=== PATIENT | male | born 1950 | race Caucasian/White ===

== ENCOUNTER 2022-02-15 09:06 | Outpatient (CLI) | payer OTHER, SELFPAY ==
--- NOTE | ~2022-02-15 | XR_ITS ---
EXAMINATION: XR chest 2V DATE: 02/15/2022 09:22 INDICATION: Shortness of breath. Congestion. TECHNIQUE: Frontal and lateral views of the chest were obtained. COMPARISON: None. FINDINGS: There are small right and large left pleural effusions. There are airspace opacities involv ing the majority of left lung. No pneumothorax. The heart size is obscured. There is mild chronic ant erior wedging of multiple thoracic vertebral bodies. IMPRESSION: 1. Small right and large left pleural effusions. 2. Airspace opacities involving the majority of left lung, which may be atelectasis or pneumonia or m alignancy. Reviewed, dictated and finalized at location A. IMPRESSION: 1. Small right and large left pleural effusions. 2. Airspace opacities involving the majority of left lung, which may be atelect asis or pneumonia or malignancy.
[2022-02-15 19:09] LABS: Alanine Aminotransferase 21 U/L (6-50); Albumin Level 4.6 g/dL (3.5-5.1); Alkaline Phosphatase 63 U/L (38-126); Anion Gap 9 mmol/L (8-16); Aspartate Amino Transferase 55 U/L (17-59); Bilirubin,Total 0.6 mg/dL (0.2-1.3); Blood Urea Nitrogen 16 mg/dL (9-20); Calcium 9.1 mg/dL (8.4-10.2); Carbon Dioxide 30 mmol/L (22-30); Chloride 98 mmol/L (98-107); Estimated Glomerular Filt Rate > 60; Glucose 77 mg/dL (65-110); Potassium 3.9 mmol/L (3.4-5.0); Sodium 137 mmol/L (137-145)
[2022-02-15 20:23] LABS: Basophils Absolute Auto 0.1 K/mm3 (0.0-0.1); Basophils Percent Auto 0.9 % (0.2-1.2); Eosinophils Absolute Auto 0.1 K/mm3 (0-0.3); Eosinophils Percent Auto 1.9 % (0-4.4); Hematocrit 44.1 % (42.0-52.0); Immature Granulocyte Absolute 0.05 K/mm3 (0.00-0.031); Immature Granulocyte Percent A 0.7 % (0-0.5); Lymphocytes Absolute Auto 0.55 K/mm3 (0.9-3.2); Lymphocytes Percent Auto 8.1 % (18.3-44.2); Mean Corpuscular HGB Conc 31.7 g/dl (32-36); Mean Corpuscular Hemoglobin 30.4 pg (26-34); Mean Corpuscular Volume 95.9 fl (80-100); Mean Platelet Volume 9.3 fl (7.4-10.4); Monocytes Absolute Auto 0.7 K/mm3 (0.1-0.6); Monocytes Percent Auto 10.3 % (2.6-8.5); Neutrophils Absolute Auto 5.3 K/mm3 (1.3-6.7); Neutrophils Percent Auto 78.1 % (45.5-73.1); Platelet Count Result 249 k/mm3 (150-375); White Blood Count 6.8 K/mm3 (4.5-10.0)
== END 2022-02-15 09:07 | disposition home or self-care (01) ==
PROVIDERS: PCP Family Medicine; Visit Provider Family Medicine
DX: J18.9 Pneumonia, unspecified organism (principal); J90 Pleural effusion, not elsewhere classified; R91.8 Other nonspecific abnormal finding of lung field
CPT/HCPCS: 36415; 71046; 80053; 85025

== ENCOUNTER 2022-03-20 10:28 | Emergency (ER) | payer OTHER, SELFPAY ==
[2022-03-20] VITALS (9 sets, daily range): BP systolic 134–155; BP diastolic 67–91; PULSE 88–95; RESP 16–18; TEMP 36.2–36.8; O2SAT 95–100
--- NOTE | ~2022-03-20 | XR_ITS ---
EXAMINATION: XR chest 2V DATE: 03/20/2022 13:09 INDICATION: Shortness of breath. TECHNIQUE: Frontal and lateral views of the chest were obtained. COMPARISON: Chest 2 views 02/15/2022 FINDINGS: There are small right and large left pleural effusions. There are airspace opacities involv ing the majority of left lung. No pneumothorax. The heart size is obscured. IMPRESSION: 1. Stable small right and large left pleural effusions. 2. Airspace opacities involving the majority of left lung with slight improvement, which may be atele ctasis or pneumonia or malignancy. Reviewed, dictated and finalized at location A. IMPRESSION: 1. Stable small right and large left pleural effusions. 2. Airspace opacities involving the majority of left lung with slight improveme nt, which may be atelectasis or pneumonia or malignancy.
--- NOTE | ~2022-03-20 | XR_ITS ---
EXAMINATION: [id number] DATE: 03/20/2022 15:16 INDICATION: Status post thoracentesis TECHNIQUE: frontal view of the chest was obtained. COMPARISON: Chest radiograph dated 03/20/22 at 1:06 PM FINDINGS: Persistent large left pleural effusion with opacification of the left mid and lower lung zones. The g as-filled hepatic flexure of the colon has moved cephalad and the prior rightward shift of the heart has decreased consistent with expected decrease in size of the left pleural effusion. No pneumothorax . Right lung remains clear with no airspace opacities, pulmonary edema or pleural effusion. The left heart border remains obscured. IMPRESSION: 1. Interval decrease in size postthoracentesis of a still large left pleural effusion with resolution of the rightward shift of the heart and likely prior depression of the left hemidiaphragm. 2. No aerated lung in the left mid and lower lung zones consistent with associated atelectasis althou gh underlying pneumonia or malignancy not excludable. Reviewed, dictated and finalized at location A. IMPRESSION: 1. Interval decrease in size postthoracentesis of a still large left pleural ef fusion with resolution of the rightward shift of the heart and likely prior dep ression of the left hemidiaphragm. 2. No aerated lung in the left mid and lower lung zones consistent with associa carlos atelectasis although underlying pneumonia or malignancy not excludable.
--- NOTE | ~2022-03-20 | US_ITS ---
EXAMINATION: US thoracentesis DATE: 03/20/2022 15:37 INDICATION: Left pleural effusion TECHNIQUE: The procedure and its risks and benefits were discussed with the patient. Potential risks discussed included bleeding, infection, and pneumothorax. The patient understood the risks and agreed to proceed. The skin was prepped and draped in sterile fashion. 1% lidocaine was used for local anes thesia. Under ultrasound guidance, a 5 Fr catheter with trochar was advanced into the left pleural ef fusion. Fluid was aspirated. The catheter was removed, and a dressing was applied. There were no imme diate complications. FINDINGS: Ultrasound images demonstrate a large left pleural effusion and the catheter within the fluid. IMPRESSION: 1. Successful ultrasound-guided thoracentesis yielding 1200 mL of cloudy light yellowish fluid. Reviewed, dictated and finalized at location A.
--- NOTE | 2022-03-20 12:34 | ECG_ITS ---
Measurements Intervals [place] Rate: 90 P: 68 AR: 158 QRS: 64 QRSD: 76 T: 60 QT: 288 QTc: 353 Interpretive Statements SINUS RHYTHM CANNOT RULE OUT SEPTAL INFARCT, AGE INDETERMINATE BORDERLINE T WAVE ABNORMALITY- ANTERIOR LEADS BASELINE ARTIFACT- I, II, III, AVR, V4 ABNORMAL ECG NO PREVIOUS ECG AVAILABLE FOR COMPARISON Electronically Signed On 03-20-2022 13:39:14 CDT by Omer Campo D.O.
--- NOTE | 2022-03-20 12:34 | ED.SOB ---
HPI - SOB/Dyspnea General Chief Complaint: Shortness of Breath/Dyspnea Stated Complaint: need to be on oxygen Time Seen by Provider: 03/20/22 12:34 Source: patient Mode of arrival: ambulatory Limitations: no limitations History of Present Illness HPI Narrative: Patient is a 71-year-old male with a history of non-Hodgkin lymphoma, recurrent pleural effusion, presenting to the emergency department for evaluation of shortness of breath. Patient states he has having increasing shortness of breath with exertion, and states that usually this is caused by pleural effusion that he has had drained monthly at various facilities including [facility] in [facility] last month. Patient denies any fever, chills, cough, hemoptysis. He denies any significant chest pain. Patient is not on any active chemotherapy. Related Data Home Medications Medication Instructions Recorded Confirmed latanoprost 0.005 % eye drops 1 drp EACH EYE DAILY 02/15/22 timolol maleate 0.5 % once daily 1 drp EACH EYE Q12H 02/15/22 eye drops Allergies Allergy/AdvReac Type Severity Reaction Status Date / Time No Known Allergies Allergy Verified 03/20/22 11:19 Review of Systems Review of Systems: CONSTITUTIONAL: Denies fever, chills, or sweats. EYES: Denies visual changes, redness, or discharge. ENT: Denies rhinorrhea, congestion, sore throat, or otalgia. CARDIOVASCULAR: Denies chest pain, palpitations, or edema. RESPIRATORY: Denies cough, reports shortness of breath GASTROINTESTINAL: Denies abdominal pain, nausea, vomiting, or diarrhea. GENITOURINARY: Denies dysuria or hematuria. SKIN: Denies rash or itching. MUSCULOSKELETAL: Denies back pain, joint pain, or myalgia. NEUROLOGIC: Denies headache, numbness, or weakness. [facility] Past Medical History Medical History (Updated 03/20/22 @ 17:17 by Sonja Contreras MD) Dyspnea Lymphoma Pneumonia Renal mass Family History Family History (Updated 02/15/22 @ 08:46 by Ladi Miller MA) Father Cancer Mother Hypertension Cerebrovascular accident Sibling Diabetes mellitus Social History Social History Smoking status: Never smoker Alcohol intake: never Substance use: never Substance use type: does not use Gender identity (if verbalized by the patient): Male Exam Narrative: GENERAL: Awake, alert, conversant HEAD: Normocephalic, atraumatic. EYES: PERRLA and EOMI. ENT: Nares clear, no rhinorrhea or epistaxis. Mucous membranes moist. NECK: Supple. CHEST: No respiratory distress, breathing even and non labored, decreased breath sounds bilaterally HEART: Regular rate, sinus rhythm ABDOMEN:Non distended, non tender EXTREMITIES: Normal range of motion. No edema. SKIN: Warm, dry, no rash. NEURO:No focal deficits. Alert and oriented x3 Course Vital Signs Vital signs: Vital Signs Temperature 36.2 C L 03/20/22 10:30 Pulse Rate 92 03/20/22 10:30 Respiratory Rate 18 03/20/22 10:30 Blood Pressure 144/69 H 03/20/22 10:30 Pulse Oximetry 98 03/20/22 10:30 Oxygen Delivery Room Air 03/20/22 10:30 Temperature 36.8 C 03/20/22 16:50 Pulse Rate 90 03/20/22 16:50 Respiratory Rate 16 03/20/22 16:50 Blood Pressure 147/91 H 03/20/22 16:50 Pulse Oximetry 100 03/20/22 16:50 Oxygen Delivery Room Air 03/20/22 11:17 MDM - SOB/Dyspnea MDM Narrative Medical decision making narrative: Patient presented for evaluation of shortness of breath, known to have recurrent pleural effusion, and at the time of assessment, does have decreased breath sounds bilaterally, most decreased on the left. With concern for pneumothorax, recurrent pleural effusion, recurrent malignancy, pneumonia. Patient is hemodynamically stable and well-appearing at the time of assessment. IV access obtained and labs are drawn. EKG without acute ischemic changes. Laboratory results are reassuring. No leukocytosis, no
[2022-03-20 12:56] LABS: Basophils Percent Auto 0.4 % (0.2-1.2); Eosinophils Percent Auto 0.3 % (0-4.4); Hematocrit 43.1 % (42.0-52.0); Hemoglobin 14.3 g/dL (14.0-18.0); Immature Granulocyte Absolute 0.03 K/mm3 (0.00-0.031); Immature Granulocyte Percent A 0.4 % (0-0.5); Lymphocytes Absolute Auto 0.78 K/mm3 (0.9-3.2); Mean Corpuscular HGB Conc 33.2 g/dl (32-36); Mean Corpuscular Hemoglobin 30.3 pg (26-34); Mean Corpuscular Volume 91.3 fl (80-100); Mean Platelet Volume 8.6 fl (7.4-10.4); Monocytes Absolute Auto 0.6 K/mm3 (0.1-0.6); Monocytes Percent Auto 7.6 % (2.6-8.5); Neutrophils Absolute Auto 6.4 K/mm3 (1.3-6.7); Neutrophils Percent Auto 81.3 % (45.5-73.1); Platelet Count Result 240 k/mm3 (150-375); Red Blood Count 4.72 M/mm3 (4.6-6.20); Red Cell Distribution Width 13.9 % (11.5-14.5); White Blood Count 7.8 K/mm3 (4.5-10.0)
[2022-03-20 13:06] LABS: Anion Gap 10 mmol/L (8-16); Blood Urea Nitrogen 16 mg/dL (9-20); Calcium 9.6 mg/dL (8.4-10.2); Carbon Dioxide 24 mmol/L (22-30); Chloride 105 mmol/L (98-107); Estimated CRCL calculation 58 ml/min; Estimated Glomerular Filt Rate > 60; Glucose 105 mg/dL (65-110); Potassium 4.4 mmol/L (3.4-5.0); Sodium 139 mmol/L (137-145)
[2022-03-20 13:11] LABS: Prothrombin Time 12.7 Seconds (11.1-14.7)
[2022-03-20 13:12] LABS: Partial Thromboplastin Time 28.3 SECONDS (22.3-36.8)
[2022-03-20 13:14] LABS: NT Pro B Type Natriuretic Pept 131 pg/mL (5-100)
[2022-03-20 19:12] LABS: Appearance Pleural Fluid Turbid (Clear); Color Pleural Fluid White (Colorless); Nucleated Cell Pleural Fluid 983 /uL (0-1000); Pleural fluid source Pleural fluid
[2022-03-20 19:13] LABS: Lymphocytes Pleural Fluid 58 %; Monocytes Pleural Fluid 41 %; RBC Pleural Fluid 3229 /uL (0-0)
[2022-03-20 19:14] LABS: Other Cells Pleural Fluid 1 %
[2022-03-22 12:00] LABS: Glucose Pleural Fluid 98 mg/dL; LDH Pleural Fluid 178 U/L; Total Protein Pleural Fluid 4.1 g/dL
[2022-03-22 18:54] LABS: Albumin Pleural Fluid 3.2 g/dL
[2022-03-23 04:27] LABS: Amylase, Pleural Fluid 36 U/L
== END 2022-03-20 18:11 | disposition home or self-care (01) ==
PROVIDERS: Internal Medicine Pulmonary Disease; Emergency Provider Emergency Medicine; PCP Family Medicine
DX: J90 Pleural effusion, not elsewhere classified (principal); R06.09 Other forms of dyspnea; Z79.51 Long term (current) use of inhaled steroids; Z85.72 Personal history of non-Hodgkin lymphomas
CPT/HCPCS: 32555; 36415; 71046; 80048; 82042; 82150; 82945; 83615; 83880; 84157; 84311; 84478; 85025; 85610; 85730; 87015; 87070; 87075; 87102; 87116; 87205; 87206; 88108; 88184; 88305; 89051; 93005; 99284

== ENCOUNTER 2022-03-27 16:20 | Emergency (ER) | payer OTHER, SELFPAY ==
--- NOTE | ~2022-03-27 | XR_ITS ---
EXAMINATION: XR chest 2V Exam Date/Time: 03/27/2022 17:05 CDT HISTORY: dyspnea X 3 MONTHS, FLUID DRAINED OFF LUNG 3 WKS AGO Comparison: 2 chest radiograph performed on 03/20/2022. RESULT: Lines, tubes, and devices: None. Lungs and pleura: Large stable left effusion, mid and lower left lung are not aerated/opacified. Mil d right costophrenic angle blunting. Cardiomediastinal silhouette: Stable. Other: No acute osseous or upper abdominal finding. IMPRESSION: Stable large left pleural effusion. Likely left mid and lower lung atelectasis, infection not exclude d. Small right pleural effusion. Reviewed, dictated and finalized at location K. IMPRESSION: Stable large left pleural effusion. Likely left mid and lower lung atelectasis, infection not excluded. Small right pleural effusion.
[2022-03-27 16:50] VITALS: BP 114/53; PULSE 71; RESP 18; TEMP 37; O2SAT 99
--- NOTE | 2022-03-27 16:53 | ECG_ITS ---
Measurements Intervals [place] Rate: 75 P: 65 ME: 174 QRS: 68 QRSD: 77 T: 59 QT: 348 QTc: 390 Interpretive Statements SINUS RHYTHM BASELINE ARTIFACT- I, III, AVL, V1 NORMAL ECG COMPARED TO ECG 03/20/2022 13:31:00 NO SIGNIFICANT CHANGES Electronically Signed On 03-27-2022 21:23:52 CDT by Omer Campo D.O.
[2022-03-27 17:23] LABS: Basophils Percent Auto 0.6 % (0.2-1.2); Eosinophils Absolute Auto 0.1 K/mm3 (0-0.3); Eosinophils Percent Auto 1.6 % (0-4.4); Hematocrit 39.4 % (42.0-52.0); Hemoglobin 13.3 g/dL (14.0-18.0); Immature Granulocyte Absolute 0.04 K/mm3 (0.00-0.031); Immature Granulocyte Percent A 0.6 % (0-0.5); Lymphocytes Absolute Auto 0.76 K/mm3 (0.9-3.2); Lymphocytes Percent Auto 11.2 % (18.3-44.2); Mean Corpuscular HGB Conc 33.8 g/dl (32-36); Mean Corpuscular Hemoglobin 30.6 pg (26-34); Mean Corpuscular Volume 90.8 fl (80-100); Mean Platelet Volume 8.6 fl (7.4-10.4); Monocytes Absolute Auto 0.7 K/mm3 (0.1-0.6); Monocytes Percent Auto 9.9 % (2.6-8.5); Neutrophils Absolute Auto 5.2 K/mm3 (1.3-6.7); Neutrophils Percent Auto 76.1 % (45.5-73.1); Platelet Count Result 255 k/mm3 (150-375); Red Blood Count 4.34 M/mm3 (4.6-6.20); White Blood Count 6.8 K/mm3 (4.5-10.0)
[2022-03-27 17:34] LABS: Alanine Aminotransferase 20 U/L (6-50); Alkaline Phosphatase 50 U/L (38-126); Anion Gap 10 mmol/L (8-16); Aspartate Amino Transferase 29 U/L (17-59); Bilirubin,Total 0.7 mg/dL (0.2-1.3); Blood Urea Nitrogen 16 mg/dL (9-20); Calcium 8.6 mg/dL (8.4-10.2); Carbon Dioxide 26 mmol/L (22-30); Chloride 102 mmol/L (98-107); Estimated CRCL calculation 42 ml/min; Estimated Glomerular Filt Rate 50; Glucose 96 mg/dL (65-110); Potassium 4.2 mmol/L (3.4-5.0); Sodium 138 mmol/L (137-145)
[2022-03-27 18:55] VITALS: BP 155/74; PULSE 88; RESP 18; O2SAT 96
[2022-03-27 19:02] VITALS: PULSE 85
--- NOTE | 2022-03-27 19:40 | ED.SOB ---
HPI - SOB/Dyspnea General Chief Complaint: Shortness of Breath/Dyspnea Stated Complaint: SHORT OF BREATH HX PLEURAL EFFUSIONS Time Seen by Provider: 03/27/22 19:05 Source: patient, RN notes reviewed and old records reviewed Mode of arrival: ambulatory Limitations: no limitations History of Present Illness HPI Narrative: This is a 71 year old male with history of renal mass, lymphoma, chronic recurrent pleural effusion who presents for evaluation of shortness of breath. He has been dealing with large left pleural effusion for several months. He has been to other facilities for drainage, and he was at [place] 1 week ago for drainage. He states he has been short of breath for past couple of days. HE denies chills, nausea, vomiting, cough . He reports night sweats. He states he was diagnosed with lymphoma years ago and he declines treatment. He still does not want any cancer treatment. HE has appointment with cardiothoracic surgeon tomorrow at noon for possible drainage placement. Related Data Home Medications Medication Instructions Recorded Confirmed latanoprost 0.005 % eye drops 1 drp EACH EYE DAILY 02/15/22 timolol maleate 0.5 % once daily 1 drp EACH EYE Q12H 02/15/22 eye drops Allergies Allergy/AdvReac Type Severity Reaction Status Date / Time No Known Allergies Allergy Verified 03/20/22 11:19 Review of Systems Review of Systems: All systems reviewed & are unremarkable except as noted in HPI and below Constitutional: Constitutional: Denies chills, Reports fatigue and Denies fever(s) ENT: Denies nasal congestion Cardiovascular: Cardiovascular: Denies chest pain and Denies radiating jaw, neck or arm pain Respiratory: Respiratory: Denies chest congestion, Denies cough and Reports dyspnea Gastrointestinal: Gastrointestinal: Denies abdominal pain, Denies nausea and Denies vomiting [facility] Past Medical History Medical History (Updated 03/28/22 @ 00:00 by Stefanie Mera) Dyspnea Lymphoma Pneumonia Renal mass Family History Family History (Updated 02/15/22 @ 08:46 by Ladi Miller MA) Father Cancer Mother Hypertension Cerebrovascular accident Sibling Diabetes mellitus Social History Social History Smoking status: Never smoker Alcohol intake: never Substance use: never Substance use type: does not use Gender identity (if verbalized by the patient): Male Exam Const: General: no acute distress and alert Nutritional Appearance: well nourished Orientation/consciousness: patient oriented x3 Limitations: no limitations HENMT: Head: normal to inspection Eyes: EOM: EOMs intact bilaterally Chest: Chest palpation & inspection: normal inspection of the chest Resp: Effort & Inspection: normal respiratory effort Auscultation: diminished lung sounds on the left Cardio: Rate: regular rate Rhythm: regular rhythm Heart sounds: no murmurs GI: GI Palp: Yes Soft to palpation, No Tenderness to palpation present (GI), No Guarding due to palpation present (GI) and No Rigid due to palpation Auscultation: normal bowel sounds Skin: General skin exam: normal color Rashes: no rashes Wounds: no wounds Neuro: General: patient oriented x3, moves all extremities and CN's II-XI intact bilaterally Extrem: Other: trace pedal edema Psych: Mental Status: mental status grossly normal Affect: normal affect Attitude: cooperative Course Reevaluation(s) Reevaluation #1: Patient was able to walk around nurses station without distress with oxygen saturation 94-96% on room air. Date: 03/27/22 Time: 21:17 Reevaluation #2: We discussed admission for thoracentesis tomorrow but given that patient has appointment with surgeon tomorrow PAtient states he feels comfortable with discharge now. He is stable with no oxygen requirements and in no distress. He feels better. He was given dose of lasix in ER. Date: 03/27/22 Time:
--- NOTE | 2022-03-27 20:05 | PC.NURSE ---
Patient's walking pulse ox around station stayed between 94-96 percent on room air.
[2022-03-27] MEDS: FUROSEMIDE INJ 40 MG/4 ML VIAL IV PUSH (20:50)
[2022-03-27 21:21] VITALS: BP 160/87; PULSE 98; RESP 29; O2SAT 93
[2022-03-27 22:28] VITALS: BP 136/67; PULSE 97; RESP 21; O2SAT 98
== END 2022-03-27 22:36 | disposition home or self-care (01) ==
PROVIDERS: Emergency Medicine; Emergency Provider General Practice; PCP Family Medicine
DX: J90 Pleural effusion, not elsewhere classified (principal); C85.90 Non-Hodgkin lymphoma, unspecified, unspecified site
CPT/HCPCS: 36415; 71046; 80053; 85025; 93005; 96374; 99284; J1940

== ENCOUNTER 2022-05-24 13:47 | Outpatient (CLI) | payer OTHER, SELFPAY ==
--- NOTE | ~2022-05-24 | XR_ITS ---
XR chest 2V DATE: 05/24/2022 14:01 INDICATION: Chronic shortness of breath. History of lung cancer. TECHNIQUE: PA and lateral views COMPARISON: 03/27/2022 two-view chest FINDINGS: Left thoracostomy tube. There is moderate left and mild right pleural effusion. Heart size is not optimally evaluated due to partial obliteration of cardiac margins by the effusions . Bilateral lower lung infiltrate or atelectasis, greater on the left. Aortic arch calcification. IMPRESSION: Left thoracostomy tube. Moderate left pleural effusion, significantly diminished since Small right pleural effusion Bibasilar infiltrate or atelectasis, greater on the left Reviewed, dictated and finalized at location B. BOARD MAKER IMPRESSION: Left thoracostomy tube. Moderate left pleural effusion, significant ly diminished since 03/27/2020 Small right pleural effusion Bibasilar infiltrate or atelectasis, greater on the left
[2022-05-24 19:12] LABS: Hematocrit 41.3 % (42.0-52.0); Hemoglobin 13.7 g/dL (14.0-18.0); Mean Corpuscular HGB Conc 33.2 g/dl (32-36); Mean Corpuscular Hemoglobin 30.8 pg (26-34); Mean Corpuscular Volume 92.8 fl (80-100); Mean Platelet Volume 8.8 fl (7.4-10.4); Platelet Count Result 335 k/mm3 (150-375); Red Blood Count 4.45 M/mm3 (4.6-6.20); Red Cell Distribution Width 13.9 % (11.5-14.5); White Blood Count 7.7 K/mm3 (4.5-10.0)
[2022-05-24 19:21] LABS: Alanine Aminotransferase 17 U/L (6-50); Albumin Level 3.1 g/dL (3.5-5.1); Alkaline Phosphatase 51 U/L (38-126); Anion Gap 8 mmol/L (8-16); Aspartate Amino Transferase 43 U/L (17-59); Bilirubin,Total 0.3 mg/dL (0.2-1.3); Blood Urea Nitrogen 24 mg/dL (9-20); Calcium 8.2 mg/dL (8.4-10.2); Carbon Dioxide 29 mmol/L (22-30); Chloride 101 mmol/L (98-107); Estimated Glomerular Filt Rate 50; Glucose 94 mg/dL (65-110); Potassium 4.6 mmol/L (3.4-5.0); Sodium 138 mmol/L (137-145)
[2022-05-24 19:26] LABS: NT Pro B Type Natriuretic Pept 185 pg/mL (5-100)
== END 2022-05-24 13:48 | disposition home or self-care (01) ==
LOC: ANHBWCLAB 13:49
PROVIDERS: PCP Family Medicine; Visit Provider Family Medicine
DX: R60.9 Edema, unspecified (principal); J90 Pleural effusion, not elsewhere classified; R06.00 Dyspnea, unspecified; R91.8 Other nonspecific abnormal finding of lung field
CPT/HCPCS: 36415; 71046; 80053; 83880; 85027

== ENCOUNTER 2022-06-05 13:30 | Outpatient (CLI) | payer OTHER, SELFPAY ==
--- NOTE | ~2022-06-05 | XR_ITS ---
XR chest 2V 06/05/2022 15:15 Indication: Shortness of breath. History of lymphoma. Procedure: PA and lateral views of the chest Comparison: Comparison to multiple prior studies sequentially, with oldest reviewed study dated 03/20. Findings: There are bilateral pleural effusions, left greater than right. There is left basilar airsp marilee disease. No pneumothorax. No acute osseous abnormality. There is a left-sided chest tube. Impression: 1: Left basilar airspace disease may represent atelectasis and/or pneumonia. 2: Bilateral pleural effusions, left greater than right. Reviewed, dictated and finalized at location A. PULLER Impression: 1: Left basilar airspace disease may represent atelectasis and/or pneumonia. 2: Bilateral pleural effusions, left greater than right.
== END 2022-06-05 13:31 | disposition home or self-care (01) ==
PROVIDERS: PCP Family Medicine; Visit Provider Family Medicine
DX: R06.00 Dyspnea, unspecified (principal); R91.8 Other nonspecific abnormal finding of lung field; J90 Pleural effusion, not elsewhere classified
CPT/HCPCS: 71046

== ENCOUNTER 2022-08-06 15:53 | Outpatient (CLI) | payer OTHER, SELFPAY ==
--- NOTE | ~2022-08-06 | CT_ITS ---
EXAMINATION: CT diagnostic chest w con DATE: 08/06/2022 16:42 INDICATION: L PLEURAL EFFUSION TECHNIQUE: Computed tomography (CT) of the chest was performed without intravenous contrast. Addition al 3D reconstructions utilizing coronal maximum intensity projection (MIP) were performed. Automated exposure control and iterative reconstruction technique were employed. The dose-length product was 16 8.43 mGy-cm. COMPARISON: None FINDINGS: Large right pleural effusion with associated compressive atelectasis in the dependent right upper and lower lobes and additional atelectasis at the medial right middle lobe. Large complex left hydropneu mothorax with small amount of gas within a few of the loculations scattered throughout the left hemit horax. There is a left thoracostomy tube which enters the left hemithorax at the anterolateral left l ower hemithorax which extends posteriorly and then cephalad with distal tip in the posterior cephalad left hemithorax. Is additional scattered atelectasis in the left hemithorax most prominent along the left lung base and to lesser degree along the posterolateral left upper and lower lobes. There is mi nimal smooth peripheral pleural enhancement along the margins of the proximal left hydropneumothorax. No evident pneumonia or pulmonary edema within the visualized aerated portions of the lungs. Heart s ize is normal. Atherosclerotic coronary artery calcific lesion. No pericardial effusion. There is bul ky left axillary lymphadenopathy which surrounds some of the neurovascular structures. There is addit ional poorly defined infiltrative soft tissue density in the left supraclavicular region extending to the superior mediastinum and confluent soft tissue density more caudally in the subcarinal region, t he anterior mediastinum and posterior along the distal descending thoracic aorta. There is additional confluent infiltrative upper abdominal retroperitoneal soft tissue density surrounding the origin of the celiac axis and superior mesenteric artery. Mild to moderate thoracic spondylosis with mild ante rior wedging of a couple mid thoracic vertebral bodies. No suspicious lytic or blastic bone lesions. IMPRESSION: 1. Lymphadenopathy and less well-defined infiltrative soft tissue density at the left axilla, left mclain praclavicular region extending to the mediastinum and in the retroperitoneum at the root of the mesen arin consistent with known history of lymphoma. 2. Moderate to large right pleural effusion and complex multiloculated large left hydropneumothorax p robably fluid with small amount of gas, bladder which may result from the presence of a left chest tu be. Reviewed, dictated and finalized at location A. RAFT WORKER IMPRESSION: 1. Lymphadenopathy and less well-defined infiltrative soft tissue density at th e left axilla, left supraclavicular region extending to the mediastinum and in the retroperitoneum at the root of the mesentery consistent with known history of lymphoma. 2. Moderate to large right pleural effusion and complex multiloculated large le ft hydropneumothorax probably fluid with small amount of gas, bladder which may result from the presence of a left chest tube.
[2022-08-06 16:29] LABS: Estimated Glomerular Filt Rate 59
== END 2022-08-06 15:54 | disposition home or self-care (01) ==
LOC: ANHIMG 16:01
PROVIDERS: PCP Family Medicine
DX: J90 Pleural effusion, not elsewhere classified (principal)
CPT/HCPCS: 71260; Q9967

== ENCOUNTER 2023-09-16 14:03 | Outpatient (CLI) | payer OTHER, SELFPAY ==
[2023-09-16 18:46] LABS: Hemoglobin 11.9 g/dL (14.0-18.0); Mean Corpuscular HGB Conc 30.5 g/dl (32-36); Mean Corpuscular Hemoglobin 29.8 pg (26-34); Mean Corpuscular Volume 97.7 fl (80-100); Mean Platelet Volume 9.9 fl (7.4-10.4); Platelet Count Result 320 k/mm3 (150-375); Red Blood Count 3.99 M/mm3 (4.6-6.20); Red Cell Distribution Width 13.9 % (11.5-14.5); White Blood Count 12.9 K/mm3 (4.5-10.0)
[2023-09-16 19:00] LABS: Alanine Aminotransferase 20 U/L (6-50); Albumin Level 4.4 g/dL (3.5-5.1); Alkaline Phosphatase 77 U/L (38-126); Anion Gap 6 mmol/L (8-16); Aspartate Amino Transferase 40 U/L (17-59); Bilirubin,Total 0.6 mg/dL (0.2-1.3); Blood Urea Nitrogen 21 mg/dL (9-20); Calcium 9.4 mg/dL (8.4-10.2); Carbon Dioxide 36 mmol/L (22-30); Chloride 96 mmol/L (98-107); Estimated Glomerular Filt Rate > 60; Glucose 129 mg/dL (65-110); Potassium 4.2 mmol/L (3.4-5.0); Sodium 138 mmol/L (137-145)
[2023-09-16 19:08] LABS: Iron 77 ug/dL (49-181)
[2023-09-16 19:20] LABS: Percent Iron Saturation 25 % (20-50)
== END 2023-09-16 14:04 | disposition home or self-care (01) ==
PROVIDERS: PCP Family Medicine; Visit Provider Family Medicine
DX: R60.9 Edema, unspecified (principal); J90 Pleural effusion, not elsewhere classified; C85.90 Non-Hodgkin lymphoma, unspecified, unspecified site
CPT/HCPCS: 36415; 80053; 83540; 83550; 85027

== ENCOUNTER 2023-12-23 14:01 | Outpatient (CLI) | payer OTHER, SELFPAY ==
[2023-12-23 18:59] LABS: Hematocrit 33.1 % (42.0-52.0); Hemoglobin 10.1 g/dL (14.0-18.0); Mean Corpuscular HGB Conc 30.5 g/dl (32-36); Mean Corpuscular Volume 91.7 fl (80-100); Platelet Count Result 397 k/mm3 (150-375); Red Blood Count 3.61 M/mm3 (4.6-6.20); Red Cell Distribution Width 16.2 % (11.5-14.5); White Blood Count 18.7 K/mm3 (4.5-10.0)
[2023-12-23 23:24] LABS: Iron 29 ug/dL (49-181)
[2023-12-23 23:37] LABS: Percent Iron Saturation 10 % (20-50)
[2023-12-23 23:38] LABS: Hemoglobin A1C 5.6 % (<5.7)
== END 2023-12-23 14:02 | disposition home or self-care (01) ==
LOC: ANHBWCLAB 14:02
PROVIDERS: PCP Nurse Practitioner Adult Health; Visit Provider Family Medicine
DX: R60.9 Edema, unspecified (principal); C85.90 Non-Hodgkin lymphoma, unspecified, unspecified site; D64.9 Anemia, unspecified; R73.09 Other abnormal glucose
CPT/HCPCS: 36415; 82728; 83036; 83540; 83550; 85027

== ENCOUNTER 2025-01-25 10:31 | Outpatient (CLI) | payer OTHER, SELFPAY ==
--- OUTSIDE RECORDS SUMMARY | 2025-01-25 10:45 | XMS_ITS | Continuity of Care Document ---
Author Organization [facility] Address [address] [place] [address] Phone Care Team Providers Care Identity Management Consultant Name Role Phone Emilie HAHN, Christian Unavailable Unavailable Advance Directives Directive Yes / No Effective Date File Name No Information Encounters Encounter Description Practice Location Reason(s) For Visit Diagnoses Date Provider Providers Copied on Encounter [facility], [id number], [place], [place], [id number], tel:[phone] [address] Tavo Brown No Information Emilie Gonzales. [address] [place], [address], [place]. tel: [phone] Family History Family Member Type Diagnosis Age At Onset No Information Payers Payer name Insurance type Covered democrat ID Authoriza tion(s) No Information Social History Type Description Quantity Date Captured Comments Sex Male Smoking Status No Information Chief Complaint And Reason For Visit No Information Reason For Referral Reason For Referral No Information History Of Present Illness Encounter Date Complaint History Of Prese nt Illness No Information Functional Status Date Functional Assessmen t No Information Instructions Date Instruction Additional Infor mation No Information Assessments Type Assessment Date No Information Patient Care Teams Name Effective Dates (start - stop) Status Members No Information
--- OUTSIDE RECORDS SUMMARY | 2025-01-25 10:45 | XMS_ITS | Clinical Summary ---
Author Organization [facility] Address [address] [place] [address] Care Team Providers Care Lawn Care Professional Name Role Phone Taylor Perez NP Primary Care Provider [phone] Kym Stewart NP Unavailable [phone] Allergies No known active allergies Medications dorzolamide-cindi oloL (COSOPT) 22.3-6.8 mg/mL ophthalmic solutionIndicat ions:ocular hypertension Administer 1 drop into the left eye 2 (two) times a day 30 mL 3 11/03/19 21 Active Additional Information Patient taking differently:1 dropright eye2 times daily, Indications: ocular hypertension, Informant: Self, Reported on 06/10/2024 albuterol HFA (PROVENTIL HFA,VENTOLIN HFA,PROAIR HFA) 90 mcg/actuation inhalerIndicati ons:dyspnea Inhale 1 puff every 8 (eight) hours as needed for shortness of breath or wheezing 02/16/20 22 Active ipratropium-alb uteroL (DUO-NEB) 0.5-2.5 mg/3 mL nebulizer solutionIndicat ions:dyspnea Take 3 mL by nebulization every 4 (four) hours as needed for shortness of breath or wheezing 08/13/19 23 Active oxygenIndicatio ns:Dyspnea Administer 2 L/min into each nostril continuously 08/13/19 23 Active furosemide (LASIX) 20 mg tabletIndicatio ns:Edema Take 2 tablets (40 mg total) by mouth 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 06/14/20 23 Active multivit-min/fe rrous fumarate (MULTI VITAMIN ORAL)Indication s:supplement Take 1 tablet by mouth 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 11/10/19 23 Active Lactobacillus acidophilus (Probiotic) 10 billion cell capsuleIndicati ons:supplement Take 1 capsule by mouth daily as needed (supplement) 11/10/19 23 Active amLODIPine (Norvasc) 5 mg tabletIndicatio ns:hypertension Take 2 tablets (10 mg total) by mouth nightly 02/27/20 23 Active diphenhydrAMINE 25 mg capsuleIndicati ons:insomina Take 1 tablet/capsule (25 mg total) by mouth nightly as needed for sleep 03/01/20 23 Active predniSONE (DELTASONE) 10 mg tabletIndicatio ns:Anti-inflamm atory Take 1 tablet (10 mg) by mouth 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 Collaborating physician Dayton Carlos MD 22 g 1 03/04/20 24 Active ferrous sulfate 325 mg (65 mg of elemental iron) tabletIndicatio ns:Iron Deficiency Anemia Take 1 tablet (325 mg total) by mouth 2 (two) times a day 02/17/20 24 Active latanoprost (XALATAN) 0.005 % ophthalmic solutionIndicat ions:open angle glaucoma Administer 1 drop into the right eye nightly 01/28/20 24 Active mirtazapine (REMERON) 15 mg tabletIndicatio ns:major depressive disorder Take 1 tablet (15 mg total) by mouth 2 (two) times a day 03/19/20 24 Active brimonidine (ALPHAGAN) 0.2 % ophthalmic solution Administer 1 drop into the right eye daily 5 mL 3 11/18/19 25 Active gabapentin (NEURONTIN) 300 mg capsuleIndicati ons:Neuropathic Pain Take 1 capsule (300 mg total) by mouth 2 (two) times a day 60 capsule 11 01/20/20 25 Active lisinopril (PRINIVIL,ZESTR IL) 20 mg tablet TAKE 2 TABLETS BY MOUTH DAILY 12/30/19 19 2022 Discontinued (No longer clinically indicated) guaiFENesin ER (MUCINEX) 600 mg 12 hr tabletIndicatio ns:Cold Symptoms,Cough Take 600 mg by mouth 2 (two) times a day. Indications: cold symptoms, cough 09/11/19 23 2022 Discontinued (Other) gabapentin (NEURONTIN) 300 mg capsuleIndicati ons:Neuropathic Pain Take 1 capsule (300 mg total) by mouth 2 (two) times a day 60 capsule 2 11/18/19 25 2024 Discontinued (Reorder) Active Problems Problem Noted Date Diagnosed Date Postop check 05/06/2024 Assessment & Plan (06/10/2024 5:28 PM PROJECT ARCHITECT): POM1 status post (s/p) cataract extraction (CE)/intraocular lens (IOL) right eye (OD) Doing well Intraocular pressure (IOP) acceptable with meds right eye (OD) Vision improved- pt happy with result Given Mrx Taper off PF 2-2-2-2-0 Cont glc meds right eye (OD)- hold brimonidine 1 month prior to next appt F/U 3-4 months Assessment & Plan (05/13/2024 2:10 PM PROJECT ARCHITECT): POW1 status post (s/p) cataract extraction (CE)/intraocular lens (IOL) right eye (OD) Doing well. IOP sl elevated from baseline. Didn't take brim this afternoon Vision improved Reviewed precautions DC Oflox PF 4-3-3-2 Cont glc meds right eye (OD) F/u at POM1- check MRx Assessment & Plan (05/06/2024 9:56 AM CDT): POD1 status post (s/p) cataract extraction (CE)/intraocular lens (IOL) right eye (OD) Doing well Intraocular pressure (IOP) acceptable with meds right eye (OD) Vision improved Reviewed precautions PF/Oflox qid right eye (OD) Cont glc meds right eye (OD) F/U 1 wk/prn Forehead laceration, initial encounter Facial abrasion, initial encounter 03/04/2024 Accidental fall 03/04/2024 Head injury, initial encounter 03/04/2024 Physical debility 08/10/2022 Dyspnea 08/09/2022 Malignant pleural effusion 08/09/2022 Glaucoma 08/07/2022 Recurrent left pleural effusion 02/20/2022 Assessment & Plan (02/06/2024 3:37 PM CDT): We will need to discuss his case with hospice. Removing the PleurX catheter on the right side is not a problem as it looks like the fluid has completely resolved. However he is currently draining possibly from some kind of fistula from whatever residual fluid collection is in the chest. We can take the catheter out but I fear this drainage will persist. He may need a further IR guided drain specifically into that left over collection as the current tube may be clogged as it does appear to be in a good location. I also reviewed the CT with Radiology to see if there is any other reason why he would be weeping fluid from the posterior aspect of the left chest wall. Once we have reviewed everything we will call the patient back and discuss further plan of action Assessment & Plan (02/21/2022 4:53 PM CDT): Started having cough and GARAY in October - L pl effusion discovered on CXR 10/2021 but not worked up. More recently, CXR showed progression and s/p thora at OSH in December. Thora studies: 73% L, 10% PMN, LDH 150, protein 4.7, NGTD, benign mesothelial cells, acute and chronic inflammatory cells, no cells c/f malignancy. - switched to a different case resolution specialist recently who reportedly obtained a CXR recently that showed white out and sent him here (records not available in care everywhere) - wokrup here: WBC 7.9, CT chest neg for PE, large L malignant pl effusion w/ near complete collapse of L lung and R mediastinal shift (correlate for tension pl effusion), extensive LAD above and below diaphragm, b/l infiltrative perirenal soft tissue partially imaged but likely also with lymphatous involvement - made aware that likely malignant and recurrent. adamant about only wanting symptomatic treatment here and not wanting diagnostics/treatment, citing fear of chemotherapy and roman catholic beliefs (I believe god will bring me to better place) - S/p thoracentesis with 2 Ls drained from left side. Post thora CXR with improvement. Plan: - thora in AM w/ aerobic culture, cytology. Ordered US guided. Patient not interested in establishing here so results will need to be sent to his PCP. - LDH - encourage him to return to prior case resolution specialist since he has no interest in establishing here or establishing with [facility] should cancer be diagnosed Renal mass 02/20/2022 Assessment & Plan (02/21/2022 4:53 PM CDT): CT ap done 04/2019 d/t abd pain showed R renal mass c/f malignancy a/w LAD. S/p L axillary LN biopsy in 03/2020, path with follicular lymphoma at least grade 1-2. patient declined to workup d/t having . - CT chest neg for PE, large L malignant pl effusion w/ near complete collapse of L lung and R mediastinal shift (correlate for tension pl effusion), extensive LAD above and below diaphragm, b/l infiltrative perirenal soft tissue partially imaged but likely also with lymphatous involvement - Patient adamant about only wanting thora and not wanting diagnostics/treatment of other isues, citing fear of chemotherapy and roman catholic beliefs (I believe god will bring me to better place). Follicular lymphoma 02/20/2022 Assessment & Plan (02/21/2022 4:54 PM CDT): S/p L axillary LN biopsy in 03/2020, path with follicular lymphoma at least grade 1-2. - CT chest neg for PE, large L malignant pl effusion w/ near complete collapse of L lung and R mediastinal shift (correlate for tension pl effusion), extensive LAD above and below diaphragm, b/l infiltrative perirenal soft tissue partially imaged but likely also with lymphatous involvement - patient adamant about only wanting thora and not wanting diagnostics/treatment of other isues, citing fear of chemotherapy and roman catholic beliefs (I believe god will bring me to better place) - LDH 295. 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 Today NLP eye is comfortable. Tmax 51 Discussed with pt and sister- no intervention indicated at this time F/U 6months per their request Assessment & Plan (11/02/2020 8:37 PM CDT): intraocular pressure (IOP) remains borderline left eye (OS) on 2 classes, up from 17 in 05/2020 to 21 today Randolph visual field (HVF) and OCT unchanged today, but with prior progression Change timolol QAM to Cosopt BID OS Continue PGA OS F/u 6 months Assessment & Plan (05/25/2020 3:32 PM PROJECT ARCHITECT): intraocular pressure (IOP) remains borderline left eye (OS) on 2 classes Last Randolph visual field (HVF) and OCT without loom changeover operator past year- prior progression CPM for now on timolol and latanoprost Will likely need cataract extraction (CE)/IOL and recommend MIGS F/U 5-6 months with Randolph visual field (HVF) , OCT, BAT, DFE Assessment & Plan (12/23/2019 10:24 PM CDT): intraocular pressure (IOP) remains borderline left eye (OS) on 2 classes Randolph visual field (HVF) and OCT without loom changeover operator past year- prior progression CPM for now Will need cataract extraction (CE)/IOL and recommend MIGS vs adding meds next visit Assessment & Plan (07/22/2019 2:55 PM PROJECT ARCHITECT): intraocular pressure (IOP) borderline today Remains on 2 classes F/U 5 months with HVF/OCT - if progression may need to advance therapy Assessment & Plan (12/31/2018 10:11 PM CDT): intraocular pressure (IOP) borderline today Pt believes that drops may be ? F/U 5 months with BAT /DFE Assessment & Plan (08/06/2018 10:50 AM PROJECT ARCHITECT): intraocular pressure (IOP) accepable. 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, s evere stage 05/31/2015 Assessment & Plan (10/29/2024 9:36 PM CDT): Here for 3-4mo follow up for pressure check Should have stopped brimonidine 1 mo prior to appt for reverse monocular trial, but occasionally (~once daily?) taking brim, LD yesterday afternoon Tapered off PF as instructed IOP 14 OD on Cosopt , Lat and infrequent Brimonidine AC quiet now Acceptable to continue Brimonidine once daily, Cosopt BID, lat qhs right eye (OD) given pt's experience RTC in 4-5 mo for HVF 24-2 right eye (OD) and OCT RNFL, DFE Assessment & Plan (04/01/2024 2:41 PM CDT): status post (s/p) trabintraocular pressure (IOP) acceptable off meds Assessment & Plan (07/10/2023 10:03 PM PROJECT ARCHITECT): Status post (s/p) trab >10 years ago. HVF with possible mild progression over 10 years vs fluctuations. IOP acceptable on current regimen. Assessment & Plan (11/02/2020 3:51 PM CDT): IOP acceptable off med. Status post (s/p) trab. HVF and OCT unchanged today Assessment & Plan (05/25/2020 3:32 PM PROJECT ARCHITECT): IOP acceptable off med. Status post (s/p) trab Plan for follow-up in 5-6 months Assessment & Plan (12/23/2019 10:21 PM CDT): intraocular pressure (IOP) acceptable, Randolph visual field (HVF)/OCT stable status post (s/p) trab Assessment & Plan (07/22/2019 2:54 PM PROJECT ARCHITECT): status post (s/p) trab intraocular pressure (IOP) excellent Follow with HVF/OCT Assessment & Plan (12/31/2018 10:09 PM CDT): status post (s/p) trab intraocular pressure (IOP) excellent F/U 5 months with BAT/dilate Assessment & Plan (08/06/2018 10:51 AM PROJECT ARCHITECT): status post (s/p) trab- intraocular pressure (IOP) excellent F/U 4-5 months with testing Assessment & Plan (04/02/2018 9:07 AM CDT): --status post (s/p) trab --intraocular pressure (IOP) at goal without drops RTC 4 months with DFE Nuclear sclerotic cataract of both eyes 05/31/20 15 Assessment & Plan (04/01/2024 2:43 PM CDT): Now VS- discussed with pt Recommend cataract extraction (CE)/intraocular lens (IOL) right eye (OD) Vision limited by glaucoma but given monocular status- will proceed Discussed R/B/A Target plano Assessment & Plan (07/10/2023 10:05 PM PROJECT ARCHITECT): Not VS- observe Pt has glasses at home- discussed safety Assessment & Plan (11/02/2020 3:59 PM CDT): Not VS to pt- next step with MIGS left eye (OS) Assessment & Plan (05/25/2020 3:16 PM PROJECT ARCHITECT): Cataracts starting to become visually significant. Continue to monitor. Assessment & Plan (07/22/2019 2:56 PM PROJECT ARCHITECT): Borderline OS BAT with no decrease in vision Patient opts to continue to watch Assessment & Plan (12/31/2018 10:11 PM CDT): ? Increasing significance right eye (OD) Check BAT next visit Assessment & Plan (08/06/2018 10:51 AM PROJECT ARCHITECT): Not VS, observe Assessment & Plan (04/02/2018 8:52 AM CDT): NVS, monitor Hypertension 02/21/2011 Assessment & Plan (02/20/2022 9:34 PM CDT): Amlodipine, lisniopril Encounters Date Type Department Care Team Description 01/19/2025 10:00 AM CDT Residential Visit [facility] [place] Palliative Care [address] [place] [address] Kym Stewart NP Peripheral polyneuropathy 11/17/2024 Orders Only [facility] Palliative Care [address] [place] [address] Terry, Kym A., [employer] Peripheral polyneuropathy 10/28/2024 1:45 PM CDT Office Visit [facility] Ophthalmology [address] [place] [address] Yomaira Ferrell MD Primary open angle glaucoma (POAG) of left eye, severe stage (Primary Dx); 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 - no drainage bag COLONOSCOPY Medical History Medical History Date Comments Glaucoma Eye trauma Cataract Hypertension Follicular lymphoma (HCC) 2019 Renal mass Recurrent left pleural effusion Sleep apnea no cpap History of home oxygen therapy Family History Medical History Relation Name Comments Diabetes Brother Family history of diabetes mellitus - (Added by TW Conv) Diabetes Daughter Family history of diabetes mellitus - (Added by TW Conv) Diabetes Mother Family history of diabetes mellitus - (Added by TW Conv) Diabetes Sister Family history of diabetes mellitus - (Added by TW Conv) Relation Name Status Comments Brother Daughter Mother Sister Social History Tobacco Use Types Packs/Day Years Used Date Smoking Tobacco: Never Smokeless Tobacco: Never Tobacco Cessation:Counseling Given: Not Answered Alcohol Use Standard Drinks/Week Comments No 0 (1 standard drink = 0.6 oz pur e alcohol) AUDIT-C Answer Date Recorded Q1: How often do you have a drink containing alcohol? Never 05/05/2024 Q2: How many drinks containi ng alcohol do you have on a typical day when you are drinking? Patient does not drink Q3: How often do you have si x or more drinks on one occasion? Never 05/05/2024 Personal Safety Answer Date Recorded Have you ever been in or are you currently in a harmful physical or emotional relationship or is someone making you feel afraid or unsafe? Denies 05/05/2024 Sex and Gender Information Value Date Recorded Sex Assigned at Not on file Legal Sex Male 12:48 AM PROJECT ARCHITECT Gender Identity Not on file Sexual Orientation Not on file Obstetrics History Last Filed Vital Signs Vital Sign Reading Time Taken Comments Blood Pressure 142/67 05/05/2024 10:40 AM CDT Pulse 82 05/05/2024 10:40 AM CDT Temperature 36 C (96.8 F) 05/05/2024 10:27 AM CDT Respiratory Rate 13 05/05/2024 10:40 AM CDT Oxygen Saturation 100% 05/05/2024 10:40 AM CDT Inhaled Oxygen Concentration - - Weight 72.6 kg (160 lb) 05/05/2024 8:00 AM CDT Height 172.7 cm (5' 8) 05/05/2024 8:00 AM CDT Body Mass Index 24.33 05/05/2024 8:00 AM CDT Plan of Treatment Health Maintenance Due Date Last Done Comments Depression Screening 1950 Hepatitis C Screening 1950 Hepatitis B Screening 1966 Well Visit 65+ 2013 Zoster Vaccine (1 of 2) 06/11/2013 04/16/2013 Pneumococcal vaccine 65+ (4 of 4 - PCV20 or PCV21) 08/01/2020 08/01/2015, 05/08/2012, 01/16/2011 Covid-19 Vaccine (3 - 2023-2 5 season) 2024 05/05/2021, 09/13/2020 Influenza Vaccine (#1) 2025 , 04/09/2019, 04/09/2018, Additional history exists Fall Risk Assessment 05/05/2025 05/05/2024 DTaP/Tdap/Td Vaccine (3 - Td or Tdap) 03/04/2034 03/04/2024, 04/25/2021, 06/07/2013 Colon Cancer Screening-CT Colonography Discontinued 01/18/2011 Colon Cancer Screening-Colonoscopy Discontinued 01/18/2011 Colon Cancer Screening-DNA Stool Discontinued 01/19/20 11 Colon Cancer Screening-FIT Discontinued 01/18/2011 Colon Cancer Screening-FOBT Discontinued 01/18/2011 Colon Cancer Screening-Sigmoidoscopy Discontinued 01/18/2011 Colorectal Cancer Screening Discontinued Abdominal Aortic Aneurysm (A AA) Screen Completed 01/04/2020, 07/30/2019, 07/02/2019 Medical Devices Implanted Type Area Record Maker Device Identifier Shelf Expiration Date Model / Serial / Lot Folkstr Lens Iol Tecpamella Smplcty 1-Pc Clr Riley 21.0 Diopter [id number] - [id number] - [id number] Implanted:Qty: 1 on 05/05/2024 by Yomaira Ferrell MD at [facility] Lens Right: Eye [place] [employer] [id number] 05/04/2026 [id number] / [id number] / Procedures Procedure Name Priority Date/Time Associated Diagnosis Comments COLONOSCOPY 01/18/2011 12:00 AM CDT from Last 3 Months or Most Recently Relevant to Health Maintenance Results * COLONOSCOPY (01/18/2011 12:00 AM CDT) Anatomical Region Laterality Modality Other Narrative 01/18/2011 12:00 AM CDT Ordered by an unspecified provider. Procedure Note Provider, MD Benjamín - 01/18/2011 12:00 AM CDT PROCEDURE REPORT Patient: ESTEBAN STAFFORD Account: [id number] Room No: : 1950 Patient Type: [facility] Attend.: Zana Jung M.D. Admit Date: 01/18/2011 Dict.: Zana Jung M.D. Disch. Date: NAME OF PROCEDURE: Colonoscopy. DATE OF PROCEDURE 01/18/2011 PREVIOUS PROCEDURE Colonoscopy with polyps removed. X-RAYS None. HISTORY AND PHYSICAL EXAM The patient is a 60-year-old male with history of blood in his stool. Wehave been asked to see him now for endoscopic evaluation of his colon. He alsohas a history of colonic polyps removed in the past. He has not had followupin five years. When asked if the patient saw blood he notes that he did seesome red-tinged material. He has had no perianal pain, no abdominal pain.Physical examination today is that of a well-developed, well-nourished white malein no acute distress. He is anicteric. His lungs were clear. GI was softand supple. Extremities showed no calf pain, cords, or edema. PRE PROCEDURE DIAGNOSIS A 60-year-old with bright red blood per rectum. PHYSICIAN Zana Jung M.D. INSTRUMENT USED The [employer] video endoscope. MEDICATIONS Per anesthesia. FINDINGS The colonoscope was introduced in the rectum in the left lateral positionand passed to the cecum. The patient tolerated the procedure well. There wereno complications. On withdrawal of the colonoscope the mucosa appearednormal with normal vascular pattern. No polyps and no masses were noted in the cecum, right, transverse, or left colons. In the rectosigmoid and rectum several small minute hyperplastic-appearing polyps were encountered.These were simply picked up, cauterized, and destroyed. The remainder of the rectosigmoid and rectum were normal. Retroflex view of the internal analarea showed moderate internal hemorrhoidal tissue. Perianal exam showed no perianal disease, no rectal masses. Prostate was normal for age. Therewere no anal fissures and no fistulas. COMPLICATIONS None. POST PROCEDURE DIAGNOSES 1. Bright red blood per rectum consistent with perianal bleeding. 2. Several small hyperplastic-appearing polyps status post cauteryand destruction. 3. History of colonic polyps. 4. Withdrawal time 6 minutes and 46 seconds. POST PROCEDURE ORDERS 1. Post sedation instructions. 2. High-fiber diet. 3. Repeat colon in five years for a history of polyps. 4. Follow up with Dr. Ernst. Zana Jung M.D. 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 TIF * DNR (Latest Code Status on File) Date Activated Date Inactivated Comments 08/13/2022 5:54 PM 03/04/2024 2:36 PM * Full Code Date Activated Date Inactivated Comments 02/20/2022 2:02 PM 02/21/2022 4:25 PM Care Teams Lawn Care Professional Relationship Specialty Start Date End Date Taylor Perez NP [address] [place] [id number] PCP - General Nurse Practitioner 03/04/24 Kym Stewart NP [address] [place] [address] [address] [place] [address] Nurse Practitioner Hospice and Palliative Medicine 09/30/23
--- OUTSIDE RECORDS SUMMARY | 2025-01-25 10:45 | XMS_ITS | Referral Summary ---
Author Organization [facility] Address [address] [place] [address] Care Team Providers Care Production Support Consultant Name Role Phone Chris Taylor SCARLETT Primary Care Provider [phone] Kym Stewart CHRISTMAS TREE FARM MANAGER Unavailable [phone] Encounters Date Type Department Care Team Description 01/19/2025 10:00 AM CDT Residential Visit [facility] Palliative Care [address] [place] [address] Kym Stewart NP Peripheral polyneuropathy 11/17/2024 Orders Only [facility] Pall[facility] [address] [place] [address] Kym Stewart NP Peripheral polyneuropathy 10/28/2024 1:45 PM CDT Office Visit [facility] [address] [place] [address] Yomaira Ferrell MD Primary open angle glaucoma (POAG) of left eye, severe stage (Primary Dx); 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, severe stage from Last 3 Months Allergies No known active allergies Medications dorzolamide-cindi [...] 2 tablets (40 mg total) by mouth floor grinder before breakfast 06/14/20 23 Active multivit-min/fe rrous fumarate (MULTI VITAMIN ORAL)Indication s:supplement Take 1 tablet by mouth floor grinder before breakfast 11/10/19 23 Active Lactobacillus acidophilus [...] Take 1 tablet (10 mg) by mouth floor grinder before breakfast 06/20/20 23 Active mupirocin (BACTROBAN) [...] 05/06/2024 Assessment & Plan (06/10/2024 5:28 PM ENTRY LEVEL ADMINISTRATIVE ASSISTANT): POM1 status post (s/p) cataract extraction (CE)/intraocular lens (IOL) right eye (OD) Doing well Intraocular pressure (IOP) acceptable with meds right eye (OD) Vision improved- pt happy with result Given Mrx Taper off PF 2-2-2-2-0 Cont glc meds right eye (OD)- hold brimonidine 1 month prior to next appt F/U 3-4 months Assessment & Plan (05/13/2024 2:10 PM ENTRY LEVEL ADMINISTRATIVE ASSISTANT): POW1 status post (s/p) cataract extraction (CE)/intraocular [...] c/f malignancy. - switched to a different optical coating technician recently who reportedly obtained a CXR recently [...] wanting diagnostics/treatment, citing fear of chemotherapy and worship beliefs (I believe god will bring me to better place) - S/p thoracentesis with 2 Ls drained from left side. Post thora CXR with improvement. Plan: - thora in AM w/ aerobic culture, cytology. Ordered US guided. Patient not interested in establishing here so results will need to be sent to his PCP. - [facility] - encourage him to return to prior optical coating technician since he has no interest in establishing [...] other isues, citing fear of chemotherapy and worship beliefs (I believe god will bring me [...] other isues, citing fear of chemotherapy and worship beliefs (I believe god will bring me [...] comfortable Assessment & Plan (07/10/2023 10:04 PM ENTRY LEVEL ADMINISTRATIVE ASSISTANT): Returns after being followed elsewhere for 3 [...] months Assessment & Plan (05/25/2020 3:32 PM ENTRY LEVEL ADMINISTRATIVE ASSISTANT): intraocular pressure (IOP) remains borderline left eye (OS) on 2 classes Last Randolph visual field (HVF) and OCT without policy change clerk past year- prior progression CPM for now on timolol and latanoprost Will likely need cataract extraction (CE)/IOL and recommend MIGS F/U 5-6 months with Randolph visual field (HVF) , OCT, BAT, DFE Assessment & Plan (12/23/2019 10:24 PM CDT): intraocular pressure (IOP) remains borderline left eye (OS) on 2 classes Randolph visual field (HVF) and OCT without policy change clerk past year- prior progression CPM for now Will need cataract extraction (CE)/IOL and recommend MIGS vs adding meds next visit Assessment & Plan (07/22/2019 2:55 PM ENTRY LEVEL ADMINISTRATIVE ASSISTANT): intraocular pressure (IOP) borderline today Remains on 2 classes F/U 5 months with HVF/OCT - if progression may need to advance therapy Assessment & Plan (12/31/2018 10:11 PM CDT): intraocular pressure (IOP) borderline today Pt believes that drops may be ? F/U 5 months with BAT /DFE Assessment & Plan (08/06/2018 10:50 AM ENTRY LEVEL ADMINISTRATIVE ASSISTANT): intraocular pressure (IOP) accepable. status post (s/p) [...] meds Assessment & Plan (07/10/2023 10:03 PM ENTRY LEVEL ADMINISTRATIVE ASSISTANT): Status post (s/p) trab >10 years ago. HVF with possible mild progression over 10 years vs fluctuations. IOP acceptable on current regimen. Assessment & Plan (11/02/2020 3:51 PM CDT): IOP acceptable off med. Status post (s/p) trab. HVF and OCT unchanged today Assessment & Plan (05/25/2020 3:32 PM ENTRY LEVEL ADMINISTRATIVE ASSISTANT): IOP acceptable off med. Status post (s/p) trab Plan for follow-up in 5-6 months Assessment & Plan (12/23/2019 10:21 PM CDT): intraocular pressure (IOP) acceptable, Randolph visual field (HVF)/OCT stable status post (s/p) trab Assessment & Plan (07/22/2019 2:54 PM ENTRY LEVEL ADMINISTRATIVE ASSISTANT): status post (s/p) trab intraocular pressure (IOP) excellent Follow with HVF/OCT Assessment & Plan (12/31/2018 10:09 PM CDT): status post (s/p) trab intraocular pressure (IOP) excellent F/U 5 months with BAT/dilate Assessment & Plan (08/06/2018 10:51 AM ENTRY LEVEL ADMINISTRATIVE ASSISTANT): status post (s/p) trab- intraocular pressure (IOP) [...] plano Assessment & Plan (07/10/2023 10:05 PM ENTRY LEVEL ADMINISTRATIVE ASSISTANT): Not VS- observe Pt has glasses at home- discussed safety Assessment & Plan (11/02/2020 3:59 PM CDT): Not VS to pt- next step with MIGS left eye (OS) Assessment & Plan (05/25/2020 3:16 PM ENTRY LEVEL ADMINISTRATIVE ASSISTANT): Cataracts starting to become visually significant. Continue to monitor. Assessment & Plan (07/22/2019 2:56 PM ENTRY LEVEL ADMINISTRATIVE ASSISTANT): Borderline OS BAT with no decrease in vision Patient opts to continue to watch Assessment & Plan (12/31/2018 10:11 PM CDT): ? Increasing significance right eye (OD) Check BAT next visit Assessment & Plan (08/06/2018 10:51 AM ENTRY LEVEL ADMINISTRATIVE ASSISTANT): Not VS, observe Assessment & Plan (04/02/2018 8:52 AM CDT): NVS, monitor Hypertension 02/21/2011 Assessment & Plan (02/20/2022 9:34 PM CDT): Amlodipine, lisniopril Immunizations Immunization Administration Dates Next Due Influenza, Trivalent, High D ose, Split, Preservative Free, Intramuscular 04/11/2011 Influenza, Trivalent, IM (MDV) 04/08/2012 Pneumococcal Polysaccharide PPV23 01/16/2011 Tdap 03/04/2024 Social History Tobacco Use Types Packs/Day Years [...] on file Legal Sex Male 12:48 AM ENTRY LEVEL ADMINISTRATIVE ASSISTANT Gender Identity Not on file Sexual Orientation Not on file Last Filed Vital Signs Vital Sign Reading [...] 05/05/2024 8:00 AM CDT Plan of Treatment Not on file Medical Devices Implanted Type Area Web Application Tester Device Identifier Shelf Expiration Date Model / Serial / Lot [employer] Lens Iol Tecpamella Smplcty 1-Pc Clr [place] 21.0 Diopter [id number] - [id number] - [id number] Implanted:Qty: 1 on 05/05/2024 by Yomaira Ferrell MD at [facility] Lens Right: Eye [place] [employer] [id number] 05/04/2026 [id number] / [id number] / Procedures Procedure Name Priority Date/Time Associated Diagnosis Comments COLONOSCOPY 01/18/2011 12:00 AM CDT from Last 3 Months or Most Recently Relevant to Health Maintenance Results * COLONOSCOPY (01/18/2011 12:00 AM CDT) Anatomical Region Laterality Modality Other Narrative 01/18/2011 12:00 AM CDT Ordered by an unspecified provider. Procedure Note Provider, MD Benjamín - 01/18/2011 12:00 AM CDT PROCEDURE REPORT Patient: ESTEBAN STAFFORD Account: [id number] Room No: : 1950 Patient Type: [facility] Attend.: Zana Jung M.D. Admit Date: 01/18/2011 [...] PHYSICIAN Zana Jung M.D. INSTRUMENT USED The [employer] video endoscope. MEDICATIONS Per anesthesia. FINDINGS The [...] up with Dr. Ernst. Zana Jung M.D. ION/ancelmo TD: 01/18/2011 09:06 PROCEDURE REPORT Authenticated by Zana Jung MD On 01/22/2011 08:26:31 AM Historical Provider ENDOSCOPY PROCEDURES Viv l Result from Last 3 Months or Most Recently Relevant to Health Maintenance Insurance [facility] MEDICARE Advance Directives For more information, please contact: [phone] Documents on File Type Date Recorded Patient Medical Coding Manager Expl anation ADVANCE DIRECTIVE 08/14/2022 9:43 AM POLST. TIF * DNR (Latest Code Status on File) Date Activated Date Inactivated Comments 08/13/2022 5:54 PM 03/04/2024 2:36 PM * Full Code Date Activated Date Inactivated Comments 02/20/2022 2:02 PM 02/21/2022 4:25 PM Care Teams Production Support Consultant Relationship Specialty Start Date End Date Taylor Perez NP [address] [place] [id number] PCP - General Nurse Practitioner 03/04/24 Kym Stewart NP [address] [place] [address] [address] [place] [address] Nurse Practitioner Hospice and Palliative Medicine 09/30/23
--- OUTSIDE RECORDS SUMMARY | 2025-01-25 10:45 | XMS_ITS | Encounter Summary ---
Author Organization [facility] Address [address] [place] [address] Care Team Providers Care Wool Sorter Name Role Phone Unavailable Primary Care Provider Unavailabl e Encounter Details Date Type Department Care Team (Late st Contact Info) Description 04/05/2020 Lab Requisition [facility] Care Pathology Lab [address] [place], [place] [id number] Sindy Adair MD [address] [place], [place] [id number] Generalized enlarged lymph nodes Social History Tobacco Use Types Packs/Day Years Used Date Smoking Tobacco: Never Assessed Sex and Gender Information Value Date Recorded Sex Assigned at Not on file Legal Sex Male 12:22 PM CDT Gender Identity Not on file Sexual Orientation Not on file documented as of this encounter Plan of Treatment Not on file documented as of this encounter Procedures Procedure Name Priority Date/Time Associated Diagnosis Comments FLOW CYTOMETRY TISSUE PANEL Routine 04/05/2020 10:39 AM CDT Generalized enlarged lymph nodes documented in this encounter Results * FLOW CYTOMETRY TISSUE PANEL (04/05/2020 10:39 AM CDT) Case Report Flow Cytometry Case: [id number] Authorizing Provider: Sindy Adair MD Collected: 04/05/2020 10:39 AM Ordering Location: [facility] Care Pathology Lab Received: 04/05/2020 03:28 PM Pathologist: Christine Rahman Mai, DO Specimen: Axillary Lymph Node, Left, Needle Biopsy 04/05/2020 6:27 PM CDT [facility] Final Diagnosis Lymph node, left axillary, flow cytometric immunophenotypic analysis: - [id number] mature B-cell lymphoma. - See interpretation. 04/05/2020 6:27 PM [facility] PATHOLOGY LAB at 1827 CD Flow Cytometry Interpretation The left axillary lymph node specimen has a viability of 93%. The majority of cells are within the lymphocyte gate (94%). Within the lymphocyte gate, there is a monotypic (lambda-restricted ) B-cell population identified which exhibits aberrant co-expression of CD10. These cells express CD19 and CD20. These cells lack expression of CD5, CD23, CD34 and comprise 47% of total events. The T-cell population shows preservation of pagan-T-cell antigens and normal CD4:CD8 ratio = 3.3:1. There is no significant blast population identified. A left axillary lymph node smear prepared from the flow cytometry specimen is reviewed for quality control engineering technician purposes. The left axillary lymph node specimen shows evidence of involvement by a [id number] mature B-cell lymphoma. Correlation with clinical findings, concurrent needle core biopsy, and relevant cytogenetic/molecu lar studies is required. 04/05/2020 6:27 PM [facility] Flow Cytometry Results Differential Result Comment Flow Cell Count /uL 2,760 Total Viability % 93.0 Lymphocytes % 94 Dim CD45 Region % 0 Monocytes % 4 Granulocytes % 2 04/05/2020 6:27 PM [facility] Reason for test Generalized enlarged lymph nodes 785.6 04/05/2020 6:27 PM [facility] Client Specimen ID # [id number] 04/05/2020 6:27 PM [facility] Number of markers 16 were performed. A-2 Flow CD10 A-4 Flow CD20 A-5 Flow CD23 A-10 Flow CD2 A-11 Flow CD3 A-12 Flow CD4 A-16 Flow CD1a A-3 Flow CD19 A-6 Flow CD34 A-7 Flow CD45 A-13 Flow CD5 A-14 Flow CD7 A-15 Flow CD8 A-17 Flow CD30 A-8 [place]+CD19+ A-9 Lambda+CD19+ 04/05/2020 6:27 PM [facility] Disclaimer Test performed at [facility], [address] [place] [address], [id number]. *The established laboratory minimum viability is 70%. Values below the minimum may result in the failure to find an abnormal population of cells. This test was developed and its performance characteristics determined by the Flow Cytometry Laboratory. It has not been cleared by the [place] Food and Drug Administration (FDA). The FDA has determined that such clearance or approval is not necessary. This test is used for clinical purposes. It should not be regarded as investigational or for research. This laboratory is regulated under the Clinical Laboratory Improvement Amendments of 1998 (CLIA) as a qualified to perform high complexity clinical testing. 04/05/2020 6:27 PM CDT [facility] PATHOLOG[facility] LAB Embedded Images 0 6:27 PM CDT [facility] LAB Pathology/Cytolo gy AXILLARY LYMPH NODE STRUCTURE / Unknown 04/05/2020 10:39 AM CDT 04/05/2020 3:28 PM CDT Sindy Adair MD LAB - PATHOLOGY/CYTOLOGY ORDERA BLES Final Result Performing Organization Address City/State/[facility] Co de Phone Number [facility] PATHOLOGY LAB [address] [phone] documented in this encounter Visit Diagnoses Diagnosis Generalized enlarged lymph nodes Enlargement of lymph nodes documented in this encounter
--- OUTSIDE RECORDS SUMMARY | 2025-01-25 10:45 | XMS_ITS ---
Author Organization [facility] Address [address] [place] [address] Care Team Providers Care Labeling Strategist Name Role Phone Taylor Perez NP Primary Care Provider [phone] Kym Stewart BALL POINT SPLITTER Unavailable [phone] Active Problems Problem Noted Date Diagnosed Date Postop check 05/06/2024 Assessment & Plan (06/10/2024 5:28 PM CHAIN PEGGER): POM1 status post (s/p) cataract extraction (CE)/intraocular lens (IOL) right eye (OD) Doing well Intraocular pressure (IOP) acceptable with meds right eye (OD) Vision improved- pt happy with result Given Mrx Taper off PF 2-2-2-2-0 Cont glc meds right eye (OD)- hold brimonidine 1 month prior to next appt F/U 3-4 months Assessment & Plan (05/13/2024 2:10 PM CHAIN PEGGER): POW1 status post (s/p) cataract extraction (CE)/intraocular [...] c/f malignancy. - switched to a different patternmaker grader recently who reportedly obtained a CXR recently [...] wanting diagnostics/treatment, citing fear of chemotherapy and synagogue beliefs (I believe god will bring me to better place) - S/p thoracentesis with 2 Ls drained from left side. Post thora CXR with improvement. Plan: - thora in AM w/ aerobic culture, cytology. Ordered US guided. Patient not interested in establishing here so results will need to be sent to his PCP. - [facility] - encourage him to return to prior patternmaker grader since he has no interest in establishing [...] other isues, citing fear of chemotherapy and synagogue beliefs (I believe god will bring me [...] other isues, citing fear of chemotherapy and synagogue beliefs (I believe god will bring me [...] comfortable Assessment & Plan (07/10/2023 10:04 PM CHAIN PEGGER): Returns after being followed elsewhere for 3 [...] months Assessment & Plan (05/25/2020 3:32 PM CHAIN PEGGER): intraocular pressure (IOP) remains borderline left eye (OS) on 2 classes Last Randolph visual field (HVF) and OCT without twisting frame changer past year- prior progression CPM for now on timolol and latanoprost Will likely need cataract extraction (CE)/IOL and recommend MIGS F/U 5-6 months with Randolph visual field (HVF) , OCT, BAT, DFE Assessment & Plan (12/23/2019 10:24 PM CDT): intraocular pressure (IOP) remains borderline left eye (OS) on 2 classes Randolph visual field (HVF) and OCT without twisting frame changer past year- prior progression CPM for now Will need cataract extraction (CE)/IOL and recommend MIGS vs adding meds next visit Assessment & Plan (07/22/2019 2:55 PM CHAIN PEGGER): intraocular pressure (IOP) borderline today Remains on 2 classes F/U 5 months with HVF/OCT - if progression may need to advance therapy Assessment & Plan (12/31/2018 10:11 PM CDT): intraocular pressure (IOP) borderline today Pt believes that drops may be ? F/U 5 months with BAT /DFE Assessment & Plan (08/06/2018 10:50 AM CHAIN PEGGER): intraocular pressure (IOP) accepable. status post (s/p) [...] meds Assessment & Plan (07/10/2023 10:03 PM CHAIN PEGGER): Status post (s/p) trab >10 years ago. HVF with possible mild progression over 10 years vs fluctuations. IOP acceptable on current regimen. Assessment & Plan (11/02/2020 3:51 PM CDT): IOP acceptable off med. Status post (s/p) trab. HVF and OCT unchanged today Assessment & Plan (05/25/2020 3:32 PM CHAIN PEGGER): IOP acceptable off med. Status post (s/p) trab Plan for follow-up in 5-6 months Assessment & Plan (12/23/2019 10:21 PM CDT): intraocular pressure (IOP) acceptable, Randolph visual field (HVF)/OCT stable status post (s/p) trab Assessment & Plan (07/22/2019 2:54 PM CHAIN PEGGER): status post (s/p) trab intraocular pressure (IOP) excellent Follow with HVF/OCT Assessment & Plan (12/31/2018 10:09 PM CDT): status post (s/p) trab intraocular pressure (IOP) excellent F/U 5 months with BAT/dilate Assessment & Plan (08/06/2018 10:51 AM CHAIN PEGGER): status post (s/p) trab- intraocular pressure (IOP) [...] plano Assessment & Plan (07/10/2023 10:05 PM CHAIN PEGGER): Not VS- observe Pt has glasses at home- discussed safety Assessment & Plan (11/02/2020 3:59 PM CDT): Not VS to pt- next step with MIGS left eye (OS) Assessment & Plan (05/25/2020 3:16 PM CHAIN PEGGER): Cataracts starting to become visually significant. Continue to monitor. Assessment & Plan (07/22/2019 2:56 PM CHAIN PEGGER): Borderline OS BAT with no decrease in vision Patient opts to continue to watch Assessment & Plan (12/31/2018 10:11 PM CDT): ? Increasing significance right eye (OD) Check BAT next visit Assessment & Plan (08/06/2018 10:51 AM CHAIN PEGGER): Not VS, observe Assessment & Plan (04/02/2018 8:52 AM CDT): NVS, monitor Hypertension 02/21/2011 Assessment & Plan (02/20/2022 9:34 PM CDT): Amlodipine, lisniopril Current Treatment and Therapy Plans No current plan information found. Past Treatment and Therapy Plans No past plan information found. Lifetime Dose Tracking * Chemical Lifetime Dose Automatic Entry Manual Entr y DLP 570 mGycm 570 mGycm 0 mGycm
--- OUTSIDE RECORDS SUMMARY | 2025-01-25 10:45 | XMS_ITS | Encounter Summary ---
Author Organization [facility] Address [address] [place] [address] Care Team Providers Care Lead Custodian Name Role Phone Unavailable Primary Care Provider Unavailabl e Encounter Details Date Type Department Care Team (Late st Contact Info) Description 04/06/2020 Lab Requisition [facility] Care Pathology Lab [address] [place], [place] [phone] Sindy Adair MD [address] [place], [place] [phone] Illness, unspecified Social History Tobacco Use Types Packs/Day Years [...] Procedure Name Priority Date/Time Associated Diagnosis Comments PATHOLOGY TISSUE Routine 04/05/2020 10:4 3 AM CDT Illness, unspecified documented in this encounter Results * PATHOLOGY TISSUE (04/05/2020 10:43 AM CDT) Case Report Surgical Pathology Report Case: [id number] Authorizing Provider: Sindy Adair MD Collected: 04/05/2020 10:43 AM Ordering Location: [facility] Care Pathology Lab Received: 04/06/2020 03:00 PM Pathologist: Christine Rahman Mai, DO Specimen: Lymph Node Biopsy, OSC: [id number] 04/08/2020 12:06 PM CDT [facility] Final Diagnosis Lymph node, left axillary, needle biopsy: - Follicular lymphoma, 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 - Please see microscopic description. 04/08/2020 12:06 PM [facility] at 1206 CDT Microscopic Description and Comment Section show needle core biopsy portions of lymphoid tissue composed of small, mature lymphocytes. Germinal centers are focally present demonstrating a mix of centroblasts and centrocytes. These germinal centers do not demonstrate increased centroblasts (less than 15 per high-power field). Immunoperoxidase studies were performed to further characterize this process. The results are as follows. CD3, CD5: Stains background T cells CD20: Positive in the germinal centers and interfollicular areas CD10, BCL-6: Highlights the germinal centers BCL-2: Positive in germinal centers and background T cells CD21: Stains follicular dendritic cell mesh works Ki-67: Focally up to 20-30% Pancytokeratin: Negative for carcinoma The immunohistochemical controls are appropriately reactive. Flow cytometric analysis performed on the left axillary lymph node on 04/05/2020 ([id number]) demonstrated a CD10 positive mature B-cell lymphoma (lambda restricted). As sampled, this is compatible with a low grade follicular lymphoma. Since this is a needle core biopsy, only a limited number of follicles are present for evaluation. Final grading and evaluation for areas of large cell transformation are deferred to excision. 04/08/2020 12:06 PM [facility] Clinical History 04/08/2020 12:06 PM [facility] Materials Received Received are 1 slide(s) and 1 block (A1) labeled [id number] along with a copy of the outside pathology report. The materials originate from [facility], [address] [place] [address]. All original materials are returned to the referring institution, along with a copy of our final report. 04/08/2020 12:06 PM [facility] Disclaimer The performance characteristics of all immunohistochemical and indirect immunofluorescence stains (if any) cited in this report were determined by the Histopathology Laboratory of [facility]. Some of these tests were developed by our own laboratory and have not been cleared or approved by the [place] Food and Drug Administration. The FDA does not require this test to go through premarket FDA review. These tests are used for clinical purposes. They should not be regarded as investigational or for research. This laboratory is certified under the Clinical Laboratory Improvement Amendments (CLIA) as qualified to perform high complexity clinical laboratory testing. This case has been personally reviewed and interpreted by the attending (teaching) pathologist. 04/08/2020 12:06 PM CDT [facility] Embedded Images 04/08/2020 12:06 PM CDT [facility] Pathology/Cytolo gy BIOPSY OF LYMPH NODE / Unknown 04/05/2020 10:43 AM CDT 04/06/2020 3:00 PM CDT us Sindy Adair MD LAB - PATHOLOGY/CYTOLOGY ORDERA BLES Final Result [facility] [address] [place] [address], [facility] [phone] documented in this encounter Visit Diagnoses Diagnosis Illness, unspecified documented in this encounter
--- OUTSIDE RECORDS SUMMARY | 2025-01-25 10:45 | XMS_ITS | Clinical Summary ---
Author Organization [facility] Address [address] [place] [address] Care Team Providers Care Real Estate Assistant Name Role Phone Unavailable Primary Care Provider Unavailabl e Source Comments [facility],non-owned Affiliates and Associated Physician Practices is amultiple site organization consisting of ambulatory clinics and hospital sitesin [place], [place], [place]. This disclosure is being madepursuant to the Care Everywhere program and may not contain all information available regarding this patient. Last updated 18.[facility] [employer] Social History Tobacco Use Types Packs/Day Years Used Date Smoking Tobacco: Never Assessed Sex and Gender Information Value Date Recorded Sex Assigned at Not on file Legal Sex Male 12:22 PM CDT Gender Identity Not on file Sexual Orientation Not on file Plan of Treatment Health Maintenance Due Date Last Done Comments MEDICARE AWV 12 MONTHS 1950 HEPATITIS C SCREENING 03/27/1966 DTAP/TDAP/TD VACCINES (1 - Tdap) 1967 PNEUMOCOCCAL VACCINE 50+ (1 of 1 - PCV) 1998 ZOSTER VACCINE (1 of 2) 1998 Respiratory Syncytial Virus (RSV) Vaccine Pt: or over 60 yrs (1 - 1-dose 75+ series) 2023 COVID-19 VACCINE (1 - season) 2024 DEPRESSION SCREENING 07/08/2024 INFLUENZA VACCINE (#1) 2025 9, 04/09/2018, 02/26/2017, Additional history exists HEPATITIS B VACCINE Aged Out No longe r eligible based on patient's age to complete this topic HIB VACCINE Aged Out No longer eligi ble based on patient's age to complete this topic HPV VACCINE Aged Out No longer eligi ble based on patient's age to complete this topic MENINGOCOCCAL (Group B) VACCINE SHARED DECISION-MAKING Aged Out No longer eligible based on patient's age to complete this topic MENINGOCOCCAL GROUPS A/C/Y/W VACCINE Aged Out No longer eligible based on patient's age to complete this topic Insurance [employer] MEDICARE
--- OUTSIDE RECORDS SUMMARY | 2025-01-25 10:45 | XMS_ITS | Encounter Summary ---
Author Organization [facility] Address [address] [place] [address] Phone Care Team Providers Care Wrapper Opener Name Role Phone Bar Ernst MD Primary Care Provider [phone]- [phone] Abdiel Cain MD Primary Care Provider [phone] Dayton Sanders MD Unavailable [phone] Khris Cha MD Primary Care Provider [phone] Taylor Perez NP Primary Care Provider [phone] Kym Stewart NP Unavailable [phone] Encounter Details Date Type Department Care Team (Late st Contact Info) Description 07/22/2013 Orders Only [facility]INCONV Provider, MD [facility] [place] [address] Social History Tobacco Use Types Packs/Day Years Used Date Smoking Tobacco: Never Assessed Alcohol Use Standard Drinks/Week Comments No 0 (1 standard drink = 0.6 oz pur e alcohol) Sex and Gender Information Value Date Recorded Sex Assigned at Not on file Legal Sex Male 12:48 AM ALARM OPERATOR Gender Identity Not on file Sexual Orientation Not on file documented as of this encounter Plan of Treatment Not on file documented as of this encounter Procedures Procedure Name Priority Date/Time Associated Diagnosis Comments PROCEDURE REPORT 07/22/2013 documented in this encounter Results * PROCEDURE REPORT (07/22/2013) Narrative 07/22/2013 Ordered by an unspecified provider. us Historical Provider NURSING COMMUNICATION Fin al Result documented in this encounter Visit Diagnoses Not on filedocumented in this encounter Additional Health Concerns Infection Onset Date Last Indicated Resolved Time COVID: Suspected 02/20/2022 02/20/2022 02/20/2022 12:55 PM CDT documented as of this encounter Care Teams Wrapper Opener Relationship Specialty Start Date End Date Bar Ernst MD PCP - General 07/04/12 12/18/16 Abdiel Cain MD [address] [address] PCP - General 12/19/16 07/09/23 Dayton Sanders MD [address] [place] [address] PCP - Hospice Attending 08/13/22 Khris Cha MD [address] [place] [address] PCP - General Family Practice 07/10/23 03/03/24 Taylor Perez NP [address] [place] [address] PCP - General Nurse Practitioner 03/04/24 Kym Stewart NP [address] [place] [address] Nurse Practitioner Hospice and Palliative Medicine 09/30/23 documented as of this encounter
--- OUTSIDE RECORDS SUMMARY | 2025-01-25 10:45 | XMS_ITS | Clinical Summary ---
Author [facility] Address [address] [place] [address] Care Team Providers Care Steamer Tender Name Role Phone Khris Cha MD Primary Care Provider [phone] Allergies No known active allergies Medications albuterol sulfate 90 mcg/Actuation inhaler INHALE 1 PUFF BY MOUTH EVERY 4 HOURS NEEDED FOR SHORTNESS OF BREATH OR WHEEZING 2 Active acetaminophen (TYLENOL) 500 mg tablet Take 1 Tablet (500 mg) by mouth every 6 hours as needed for Pain. 2 Active dorzolamide-justin loL (COSOPT) 22.3-6.8 mg/mL solution Administer 1 Drop in left eye 2 times daily. Active LORazepam (ATIVAN) 0.5 mg tabletIndication s:Follicular lymphoma grade II, unspecified body region (CMS/HCC),Recurr ent pleural effusion on left,Palliative care encounter Take 1 Tablet (0.5 mg) by mouth every 4 hours as needed for Anxiety. 12 Tablet 08/12/2022 3:11 PM LICENSE CLERK 3 Active Active Problems Problem Noted Date Diagnosed Date Physical debility 08/10/2022 Palliative care encounter 08/10/2022 History of follicular lymphoma 08/10/2022 Malignant pleural effusion 08/09/2022 Dyspnea 08/09/2022 Palliative care by specialist 08/09/2022 Glaucoma 08/07/2022 Recurrent pleural effusion on left 03/14/2022 Follicular lymphoma 03/14/2022 Renal mass 03/14/2022 Social History Tobacco Use Types Packs/Day Years Used Date Smoking Tobacco: Never Smokeless Tobacco: Never Tobacco Cessation:Counseling Given: Not Answered Alcohol Use Standard Drinks/Week Comments Not Currently 0 (1 standard drink = 0.6 oz pur e alcohol) Sex and Gender Information Value Date Recorded Sex Assigned at Not on file Legal Sex Male 12:42 PM CDT Gender Identity Not on file Sexual Orientation Not on file Last Filed Vital Signs Vital Sign Reading Time Taken Comments Blood Pressure 129/75 08/12/2022 8:16 AM LICENSE CLERK Pulse 97 08/12/2022 8:16 AM LICENSE CLERK Temperature 36.3 C (97.4 F) 08/12/2022 8:16 AM LICENSE CLERK Respiratory Rate 23 08/12/2022 8:16 AM LICENSE CLERK Oxygen Saturation 95% 08/12/2022 8:16 AM LICENSE CLERK Inhaled Oxygen Concentration - - Weight 77.2 kg (170 lb 1.6 oz) 08/10/2022 4:30 A M LICENSE CLERK Height 175.3 cm (5' 9) 08/07/2022 11:01 PM LICENSE CLERK Body Mass Index 25.12 08/07/2022 11:01 PM LICENSE CLERK Plan of Treatment Health Maintenance Due Date Last Done Comments ZOSTER VACCINE (1 of 2) 06/11/2013 04/16/2013 PNEUMOCOCCAL VACCINE 50+ YEA RS (4 of 4 - PCV20 or PCV21) 08/01/2020 08/01/2015, 05/08/2012, 01/16/2011 RSV VACCINE (60+ or ) (1 - 1-dose 75+ series) 2023 COVID-19 Vaccine (3 - 2023-2 5 season) 2024 05/05/2021, 09/13/2020 INFLUENZA VACCINE (#1) 2025 , 03/15/2020, 03/15/2020, Additional history exists DTAP/TDAP/TD VACCINES (2 - T d or Tdap) 04/25/2031 04/25/2021 COLORECTAL SCREENING Discontinued 01/18/2011 Colorectal Cancer Screening Discontinued FIT-DNA Q 3 years Discontinued FIT/FOBT Q 1 year Discontinued Flex Sig/CT Colonography Q 5 years Discontinued Insurance [employer] MCR RX MEDIMPACT Member Subscriber Plan / Payer (Ef fective 2022-Present) Name:Esteban Stafford Relation to Subscriber:Self Name:Esteban Stafford Payer ID:Not on file Group ID:[id number] Type:RX Medicare Part D Address: [address] [place] [employer] PLANS (INTERNAL) [facility] Advance Directives For more information, please contact: [phone] * NO CPR (In Event of Cardiopulmonary Arrest) (Latest Code Status on File) Date Activated Date Inactivated Comments 08/08/2022 8:16 PM 08/12/2022 6:25 PM Question Answer Comments Mechanical Ventilation (for respiratory distress) - Invasive (i.e. intubation): No Mechanical Ventilation (for respiratory distress) - Non-Invasive (i.e. BiPAP, CPAP): Yes * Full Code Date Activated Date Inactivated Comments 08/08/2022 2:46 PM 08/08/2022 8:16 PM * NO CPR (In Event of Cardiopulmonary Arrest) Date Activated Date Inactivated Comments 08/07/2022 9:40 PM 08/08/2022 2:45 PM Question Answer Comments Mechanical Ventilation (for respiratory distress) - Invasive (i.e. intubation): Yes Mechanical Ventilation (for respiratory distress) - Non-Invasive (i.e. BiPAP, CPAP): Yes * Full Code Date Activated Date Inactivated Comments 04/03/2022 9:46 AM 04/03/2022 6:52 PM Care Teams Steamer Tender Relationship Specialty Start Date End Date Khris Cha MD PCP - General Family Practice 03/14/22
--- OUTSIDE RECORDS SUMMARY | 2025-01-25 10:45 | XMS_ITS | Encounter Summary ---
Author Organization [facility] Address [address] [place] [address] Phone Care Team Providers Care Mobile Marketing Specialist Name Role Phone Abdiel Cain MD Primary Care Provider [phone] Taylor Perez APRN Primary Care Provider [phone] Reason for Visit * Reason Comments Medication Refill Encounter Details Date Type Department Care Team (Late st Contact Info) Description 08/01/2020 Refill [facility] [address] [place] [address] Abdiel Cain MD [address] [address] Medication Refill Social History Tobacco Use Types Packs/Day Years Used Date Smoking Tobacco: Never Smokeless Tobacco: Never Alcohol Use Standard Drinks/Week Comments Not Currently 0 (1 standard drink = 0.6 oz pur e alcohol) PHQ-2 Answer Date Recorded Total Score - Questions 1-9 0 08/09 Sexually Active Control Partners Comments Not Currently Sex and Gender Information Value Date Recorded Sex Assigned at Not on file Legal Sex Male 12:07 AM CDT Gender Identity Not on file Sexual Orientation Not on file Occupation Industry Job Start Date Job End Date retired Not on file Not on file Not on file documented as of this encounter Miscellaneous Notes * Telephone Encounter - Abdiel Cain MD - 08/01/2020 12:37 PM CST Prescription approved. Please call in SAMPLE MATCHER * Telephone Encounter - Nannette Andres RN - 08/01/2020 12:23 PM CST Medication failed the protocol, provider to review and approve the medication order if appropriate. Requested Prescriptions Pending Prescriptions Disp Refills lisinopril (PRINIVIL, ZESTRIL) 20 MG Tablet [Pharmacy Med Name: LISINOPRIL 20MG TAB] 180 Tab 3 Sig: TAKE 1 TABLET BY MOUTH TWO TIMES DAILY Cardiovascular: VALENCIA Inhibitors Failed - 08/01/2020 4:32 AM Failed - Last BP in normal range BP Readings from Last 1 Encounters: 04/14/20 142/80 Passed - Valid encounter within last 12 months Past Office Visits Recent Outpatient Visits 5 months ago Essential hypertension [facility] Abdiel Reyes MD 11 months ago Essential [facility] Abdiel Reyes MD 1 year ago Essential hypertension [facility] Quintin Rodriguez APN, OBSERVER HELPER 1 year ago Essential hypertension [facility] Abdiel Reyes MD 1 year ago Essential hypertension [facility] Abdiel Reyes MD Upcoming Appointments Future Appointments In 3 weeks [facility], [facility], [facility] In 1 month [facility] 2 months Todd Mathis MD [facility] On[facility], [facility] LEGAL BILLING COORDINATOR - Recent and Past Visits Recent Visits Date Type Provider Dept 03/01/20 Office Visit Abdiel Cain MD [facility] 09/03/19 [facility] Sanjeev Showing recent visits within past 460 days with a meds authorizing provider and meeting all other requirements Future Appointments Date Type Provider Dept 09/01/20 Appointment Abdiel Cain MD [facility] Showing future appointments within next 90 days with a meds authorizing provider and meeting all other requirements SAMPLE MATCHER documented in this encounter Plan of Treatment Upcoming Encounters Date Type Department Care Team (Late st Contact Info) Description 03/22/2025 1:30 PM CDT Office Visit [facility] [address] [place] [address] Ugo Urrutia MD [address] [place] [address] documented as of this encounter Visit Diagnoses Not on filedocumented in this encounter Additional Health Concerns Assessment Noted Time PHQ-9 Depression Total Score: 0 09/03/19 20 8:36 AM HAIR SAMPLE MATCHER documented as of this encounter Care Teams Mobile Marketing Specialist Relationship Specialty Start Date End Date Abdiel Cain MD [address] [address] PCP - General Family Medicine 06/06/15 10/07/24 Taylor Perez APRN [address] [place] [address] PCP - General Advanced Practice Nurse 10/08/24 documented as of this encounter
--- OUTSIDE RECORDS SUMMARY | 2025-01-25 10:45 | XMS_ITS | Clinical Summary ---
Author Organization [facility] Address [address] [facility] [address] [place] [address] Phone Care Team Providers Care Asphalt Paving Foreman Name Role Phone Taylor Perez Lela BEAUCHAMP Primary Care Provider [phone] Allergies No known active allergies Medications melatonin 3 MG Tablet Take 3 mg by mouth nightly. Active Multiple Vitamins-Minerals (MENS MULTIVITAMIN PO) Take by mouth daily. Active GARLIC PO Take by mouth daily. Active hydroCHLOROthiazi de 25 MG TabletIndications :Essential hypertension TAKE 1 TABLET BY MOUTH DAILY 90 Tablet 1 1 Active latanoprost (XALATAN) 0.005 % Solution Place 1 Drop in left eye nightly. 7.5 mL 1 1 Active Phenylephrine-DM (THERAFLU COLD/COUGH DAYTIME PO) Take by mouth. Act nicanor acetaminophen-caf feine (Excedrin Tension Headache) 500-65 MG Tablet Take 1 Tablet by mouth every 4 hours as needed. Active amLODIPine (NORVASC) 5 MG Tablet TAKE ONE-HALF TABLET BY MOUTH TWICE DAILY 100 Tablet 2 2 Active predniSONE (DELTASONE) 10 MG Tablet Take 1 Tablet by mouth daily. 10 Tablet 2 Active lisinopril (PRINIVIL, ZESTRIL) 20 MG Tablet Take 1 Tablet by mouth 2 times daily. 200 Tablet 2 2 Active ferrous sulfate 325 (65 Fe) MG Tablet Take 325 mg by mouth 2 times daily. 5 Active albuterol 108 (90 Base) MCG/ACT Aerosol Solution INHALE 1 PUFF EVERY 4 HOURS NEEDED FOR SHORTNESS OF BREATH OR WHEEZING Active furosemide (LASIX) 20 MG Tablet Take 20 mg by mouth. 5 Active mirtazapine (REMERON) 15 MG Tablet Take 15 mg by mouth 2 times daily. 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 1105/09/2017 Screening for colon cancer 01/28/2017 Varicose veins of both lower extremities 017 MAYI (obstructive sleep apnea) 01/30/2016 Essential hypertension 08/01/2015 Insomnia due to medical condition 08/01/2015 Immunizations Immunization Administration Dates Next Due Covid-19 Vaccine, Vector-nr, Rs-ad26, Pf, 0.5 Ml (imo.im/[employer]) 05/05/2021,09/13/2020 Influenza Vaccine greater than 3 yrs 02/26/2017, 03/29/2016,04/15/2015 Influenza Vaccine less than 3 yrs 04/09/2019 Influenza, High-dose, Quadrivalent 02/28/2021, Influenza, Seasonal, Injecta ble, Undefined 02/26/2017,03/29/2016 Influenza, high-dose, trivalent, PF 09/0 02/2020,04/09/2019,04/09/2018,2014,03/18/2013 PUR PCV-13 08/01/2015 Pneumococcal Vaccine - 13 Valent 08/01/2015 Pneumococcal Vaccine Adult - 23 Valent 05/08/2012,01/16/2011 TD VACCINE 06/07/2013 TDAP Vaccine 04/25/2021 Zoster Vaccine, live 04/16/2013 Family History Medical History Relation Name Comments Cancer Brother brain Cancer Father esophagus Diabetes Mother Relation Name Status Comments Brother Father Mother Social History Tobacco Use Types Packs/Day Years Used Date Smoking Tobacco: Never Smokeless Tobacco: Never Tobacco Cessation:Counseling Given: No Alcohol Use Standard Drinks/Week Comments Not Currently [...] file Not on file Not on file Last Filed Vital Signs Vital Sign Reading Time Taken Comments Blood Pressure 140/70 12/20/2021 10:25 AM CDT Pulse 70 12/20/2021 10:25 AM CDT Temperature 36.5 C (97.7 F) 12/20/2021 10:25 AM CDT Respiratory Rate 16 12/20/2021 10:25 AM CDT Oxygen Saturation 95% 12/20/2021 10:25 AM CDT Inhaled Oxygen Concentration - - Weight 74.4 kg (164 lb) 12/20/2021 8:55 AM CDT Height 175.3 cm (5' 9) 12/20/2021 8:55 AM CDT Body Mass Index 24.22 12/20/2021 8:55 AM CDT Plan of Treatment Upcoming Encounters Date Type Department Care Team (Late st Contact Info) Description 03/22/2025 1:30 PM CDT Office Visit [facility] - Neurology [facility] [address] [place] [address] Ugo Urrutia MD [address] [place] [address] Health Maintenance Due Date Last Done Comments Hepatitis C Virus (HCV) Screening 1950 Zoster Immunization (1 of 2) 06/11/2013 04/16/2013 SARS-COV-2 Immunization ( season) 2024 04/09/2024, 03/30/2023, 05/01/2022, Additional history exists Influenza Immunization (#1) 2025 08/10/2022, 04/03/2022, 02/28/2021, Additional history exists Td Immunization Every 10 Years (Adults With 1 Tdap) 03/04/2034 03/04/2024, 04/25/2021, 06/07/2013 Immunochemical Fecal Occult Blood Discontinued 09/02/2018, 01/31/2017 Cologuard Discontinued 03/09/2020 Colorectal Cancer Screening Discontinued Respiratory Syncytial Virus (RSV) Immunization (Adult) Completed 11/22/2023, 04/04/2023 Pneumococcal Immunization (50+ years) Completed 12/09/2023, 08/01/2015, 08/01/2015, Additional history exists Pneumococcal Immunization Combined Discontinued 12/09/2023, 08/01/2015, 08/01/2015, Additional history exists Colonoscopy Discontinued Hepatitis B Immunization Aged Out No longer eligible based on patient's age to complete this topic Human Papillomavirus (HPV) Immunization Aged Out No longer eligible based on patient's age to complete this topic Meningococcal Immunization (ACWY) Aged Out No longer eligible based on patient's age to complete this topic Rotavirus Immunization Aged Out No lo nger eligible based on patient's age to complete this topic Medical Devices Implanted Type Area Wood Barker Device Identifier Shelf Expiration Date Model / Serial / Lot Stent Ureteral 6fr 2.1fr 26cm 2 Pigtail Curve 2 Durometer Taper Tip Loprfl Graduated Polaris Ultra - [id number] Implanted:Qty : 1 on 10/30/2019 by Yareli Germain MD at [facility] IMPLANT Right: Ureter [employer] 06/03/2022 [id number] / [id number] / [id number] Procedures Procedure Name Priority Date/Time Associated Diagnosis Comments COLOGUARD Routine 03/09/2020 9:45 AM CDT Screening for colon cancer STOOL, OCCULT BLOOD IMMUNOASSAY (IFOB) Routine 09/02/2018 9:30 AM REMOTE ENCODING OPERATIONS SUPERVISOR Screening for colon cancer from Last 3 Months or Most Recently Relevant to Health Maintenance Results * COLOGUARD (03/09/2020 9:45 AM CDT) Cologuard Negative Not Applicable [facility] Comment: A negative result indicates a low likelihood that a colorectal cancer (CRC) or an advanced adenoma (adenomatous polyps with more advanced pre-malignant features) is present. The chance that a person with a negative Cologuard test has a colorectal cancer is less than 1 in 1500 (negative predictive value >99.9%) or has an advanced adenoma is less than 5.3% (negative predictive value 94.7%). These data are based on a prospective cross-sectional screening study of 10,000 individuals at average risk for colorectal cancer who were screened with both Cologuard and colonoscopy. (Yordan Wilson et al, N Engl J Med 2014;370(14):7846-7475) The normal value (reference range) for this assay is negative. COLOGUARD RE-SCREENING RECOMMENDATION: Periodic routine colorectal cancer screening is an important part of preventive healthcare for asymptomatic persons at average risk for colorectal cancer. Following a negative Cologuard result, the [place] Cancer Society and U.S. Multi-Society Task Force screening guidelines recommend a Cologuard re-screening interval of 3 years. References: [place] Cancer Society (ACS). Colorectal cancer prevention and early detection. [place], [place]: [place] Cancer Society; [updated 2015Oct 29]. https://www.cancer.org/cancer/gapqr-gymtgr-rjrjst/ufcwzddhr-lchqyketm-rycmqje/ acs-recommendations.html. Accessed March 07, 2018; Josh POLO, Niurka PIEDRA, Leslye AltamiranoK, Colorectal Cancer Screening: Recommendations for Physicians and Patients from the U.S. Multi-Society Task Force on Colorectal Cancer Screening, Am J Gastroenterology 2017; 112:7011-4519. TEST TYPE: Composite algorithmic analysis of stool DNA-biomarkers with hemoglobin immunoassay. Quantitative values of individual biomarkers are not reportable and are not associated with individual biomarker result reference ranges. PRECAUTIONS AND LIMITATIONS: Cologuard is intended for colorectal cancer screening of adults of either sex, 45 years or older, who are at average-risk for colorectal cancer (CRC). Cologuard has been approved for use by the U.S. FDA. Cologuard may produce a false negative or false positive result. A negative Cologuard test result does not guarantee the absence of CRC or advanced adenoma (pre-cancer). Patients with a negative Cologuard test result should be advised to continue participating in a colorectal cancer screening program. The screening interval for Cologuard is currently recommended at an interval of every 3 years by the [place] Cancer Society and U.S. Multi-Society Task Force. A false positive result occurs when Cologuard produces a positive result, even though a colonoscopy may not find colorectal cancer or precancerous polyps. The performance of Cologuard has been established in a cross sectional study (i.e., single point in time) of average-risk adults aged 50-84. Cologuard performance in patients ages 45 to 49 years was estimated by sub-group analysis of near-age groups. Cologuard performance data in a 10,000 patient pivotal study using colonoscopy as the reference method can be accessed at the following location: www.[employer]/results. Additional description of the Cologuard test process, warnings and precautions can be found at www.cologuardtest.com. Rx only. Stool specimen (specimen) 03/09/2020 9:45 AM CDT 03/10/2020 5:15 PM CDT us Abdiel Cain MD BODY FLUIDS & STOOLS ORDERABL ES Final Result Performing Organization Address City/[facility]/ZIP Co de Phone Number [employer] [facility] [address] [place] [address], [employer] [address] [place] [address] * STOOL, OCCULT BLOOD IMMUNOASSAY (IFOB) (09/02/2018 9:30 AM REMOTE ENCODING OPERATIONS SUPERVISOR) OCCULT BLOOD - IFOB Negative Negative 09/02/2018 10:10 PM REMOTE ENCODING OPERATIONS SUPERVISOR [facility] Specimen of unknown material (specimen) STOOL SPECIMEN / Unknown Non-Phlebotomy Collection / Unknown 09/02/2018 9:30 AM REMOTE ENCODING OPERATIONS SUPERVISOR 09/02/2018 11:45 AM REMOTE ENCODING OPERATIONS SUPERVISOR us Abdiel Cain MD BODY FLUIDS & STOOLS ORDERABL ES Final Result [facility] [address] [place] [address], [place] from Last 3 Months or Most Recently Relevant to Health Maintenance Insurance MEDICARE C [employer] Care Teams Asphalt Paving Foreman Relationship Specialty Start Date End Date Taylor Perez APRN [address] [place] [address] PCP - General Advanced Practice Nurse 10/08/24
--- OUTSIDE RECORDS SUMMARY | 2025-01-25 10:45 | XMS_ITS | Encounter Summary ---
Author Organization [facility] Address [address] [place] [address] Phone Care Team Providers Care Wedding Photographer Name Role Phone Abdiel Cain MD Primary Care Provider [phone] Taylor Perez APRN Primary Care Provider [phone] Reason for Visit * Reason Comments Medication Refill Encounter Details Date Type Department Care Team (Late st Contact Info) Description 05/23/2020 Refill [facility] - Family Medicine [facility] [address] [place] [address] Abdiel Cain MD [address] [address] Medication Refill Social History Tobacco Use Types [...] Telephone Encounter - Abdiel Cain MD - 05/23/2020 11:23 AM CST Prescription approved. Please call in [facility] * Telephone Encounter - Nannette Andres RN - 05/23/2020 11:13 AM CST Medication failed the protocol, provider to review and approve the medication order if appropriate. Requested Prescriptions Pending Prescriptions Disp Refills hydroCHLOROthiazide 25 MG Tablet [Pharmacy Med Name: HYDROCHLOROTHIAZIDE 25MG TAB] 90 Tab 1 Sig: TAKE 1 TABLET BY MOUTH DAILY Cardiovascular: Diuretics Failed - 05/23/2020 4:47 AM Failed - Last BP in normal range BP Readings from Last 1 Encounters: 04/14/20 142/80 Passed - Valid encounter within last 12 months Past Office Visits Recent Outpatient Visits 2 months ago Essential hypertension [facility] - Abdiel Reyes MD 8 months ago Essential hypertension [facility] Abdiel Reyes MD 1 year ago Essential hypertension [facility] Quintin Rodriguez APN, PINA 1 year ago Essential hypertension [facility] Abdiel Reyes MD 1 year ago Essential hypertension [facility] Abdiel Reyes MD Upcoming Appointments Future Appointments In 3 months [facility], [facility] In 3 months Abdiel Cain MD [facility] In 4 months Todd Mathis MD [facility] Oncology Services, [facility] - Recent and Past Visits Recent Visits Date Type Provider Dept 03/01/20 Office Visit Abdiel Cain MD [facility] 09/03/19 Office Visit Abdiel Cain MD [facility] 03/06/19 Office Visit Quintin Espinoza APN, CNP [facility] 02/27/19 Office Visit Abdiel Cain MD [facility] Showing recent visits within past 460 days with a meds authorizing provider and meeting all other requirements Future Appointments No visits were found meeting these conditions. Showing future appointments within next 90 days with a meds authorizing provider and meeting all other requirements [employer] [facility] documented in this encounter Plan of Treatment Upcoming Encounters Date Type Department Care Team (Late st Contact Info) Description 03/22/2025 1:30 PM CDT Office Visit [facility] - Neurology [facility] [address] [place] [address] Ugo Urrutia MD [address] [place] [address] documented as of this encounter Visit Diagnoses Diagnosis Essential hypertension Unspecified essential hypertension documented in this encounter Additional Health Concerns Assessment Noted Time PHQ-9 Depression Total Score: 0 09/03/19 20 8:36 AM [facility] [employer] [facility] documented as of this encounter Care Teams Wedding Photographer Relationship Specialty Start Date End Date Abdiel Cain MD [address] [address] PCP - General Family Medicine 06/06/15 10/07/24 Taylor Perez APRN [address] [place] [id number] PCP - General Advanced Practice Nurse 10/08/24 documented as of this encounter
[2025-01-25 19:55] LABS: Hematocrit 39.9 % (42.0-52.0); Hemoglobin 12.5 g/dL (14.0-18.0); Mean Corpuscular HGB Conc 31.3 g/dl (32-36); Mean Corpuscular Hemoglobin 30.7 pg (26-34); Mean Corpuscular Volume 98.0 fl (80-100); Platelet Count Result 266 k/mm3 (150-375); Red Blood Count 4.07 M/mm3 (4.6-6.20); White Blood Count 12.4 K/mm3 (4.5-10.0)
[2025-01-25 20:04] LABS: Alanine Aminotransferase 25 U/L (6-50); Albumin Level 4.4 g/dL (3.5-5.1); Alkaline Phosphatase 67 U/L (38-126); Anion Gap 5 mmol/L (4-12); Aspartate Amino Transferase 53 U/L (17-59); Bilirubin,Total 0.3 mg/dL (0.2-1.3); Blood Urea Nitrogen 20 mg/dL (9-20); Calcium 10.2 mg/dL (8.4-10.2); Carbon Dioxide 39 mmol/L (22-30); Chloride 91 mmol/L (98-107); Estimated Glomerular Filt Rate 58; Glucose 120 mg/dL (65-110); Potassium 4.4 mmol/L (3.4-5.0); Sodium 135 mmol/L (137-145); Total Protein 7.4 g/dL (6.3-8.2)
== END 2025-01-25 10:32 | disposition home or self-care (01) ==
LOC: ANHBWCLAB 10:32
PROVIDERS: PCP Nurse Practitioner Adult Health; Visit Provider Nurse Practitioner Adult Health
DX: C85.90 Non-Hodgkin lymphoma, unspecified, unspecified site (principal); R60.9 Edema, unspecified
CPT/HCPCS: 36415; 80053; 85027